=== PATIENT | female | born 1995 | race Caucasian/White ===

== ENCOUNTER 2016-06-01 16:21 | Emergency (ER) | payer OTHER ==
--- NOTE | 2016-06-01 16:37 | UC ---
Throat Pain/Nasal Fili HPI - HPI Summary HPI Summary: complaint of sore throat, nasal congestion, cough, headache that started 2.5 days ago feels slightly nauseated diarrhea for the last 2.5 days has felt feverish and chills taking cough drops without relief - no other medications close contact with children with similiar illness - History of Current Complaint Stated Complaint: SORE THROAT/STOMACH Time Seen by Provider: 06/01/16 16:25 Hx Obtained From: Patient Hx Last Menstrual Period: 10/24/15 - Allergies/Home Medications Allergies/Adverse Reactions: Allergies Allergy/AdvReac Type Severity Reaction Status Date / Time Clavulanic Acid AdvReac Intermediate upset Verified 06/01/16 16:29 [From Augmentin] stomach Codeine AdvReac Intermediate upset Verified 06/01/16 16:29 stomach PMH/Surg Hx/FS Hx/Imm Hx Previously Healthy: Yes Endocrine History Of: Denies: Diabetes, Thyroid Disease, Hyperthyroidism, Hypothyroidism, Dyslipidemia Cardiovascular History Of: Denies: Cardiac Disorders, Hypertension, Pacemaker/ICD, Myocardial Infarction , Congestive Heart Failure, Atrial Fibrillation, Deep Vein Thrombosis, Bleeding Disorders Respiratory History Of: Denies: COPD, Asthma, Bronchitis, Pneumonia, Pulmonary Embolism GI/ History Of: Denies: Gastroesophageal Reflux, Ulcer, Gastrointestinal Bleed, Gall Bladder Disease, Kidney Stones, Diverticulitis, Renal Disease, Urosepsis Neurological History Of: Denies: TIA, CVA, Dementia, Seizures, Migraine Psychological History Of: Reports: Anxiety Denies: Depression, Bipolar Disorder, Schizophrenia, Post Traumatic Stress Disorder Cancer History Of: Denies: Lung Cancer, Colorectal Cancer, Breast Cancer, Prostate Cancer, Cervical Cancer Other History Of: Negative For: HIV, Hepatitis B, Hepatitis C, Anticoagulant Therapy - Surgical History Surgical History: Yes Surgery Procedure, Year, and Place: T&A. L foot surgery. tubes in ears - Family History Known Family History: Positive: Cardiac Disease, Hypertension, Diabetes, Other - Mother has IBS Negative: Renal Disease - Social History Occupation: Employed Full-time Lives: With Family Alcohol Use: Occasionally Substance Use Type: None Smoking Status (MU): Never Smoked Tobacco - Immunization History Most Recent Influenza Vaccination: Not the 2014/2015 Season Vaccination Up to Date: Yes Review of Systems Constitutional: Fever, Chills Skin: Negative Eyes: Negative ENT: Sore Throat, Nasal Discharge Respiratory: Cough Cardiovascular: Negative Gastrointestinal: Vomiting, Diarrhea Genitourinary: Negative Motor: Negative Neurovascular: Negative Musculoskeletal: Negative Neurological: Negative Psychological: Negative All Other Systems Reviewed And Are Negative: Yes Physical Exam Triage Information Reviewed: Yes Appearance: No Pain Distress, Well-Nourished Vital Signs Reviewed: Yes Eyes: Positive: Conjunctiva Clear ENT: Positive: Pharyngeal erythema, Nasal congestion, Nasal drainage, TMs normal Neck: Positive: No Lymphadenopathy Respiratory: Positive: Lungs clear, Normal breath sounds, No respiratory distress Cardiovascular: Positive: RRR, No Murmur, Pulses Normal Abdomen Description: Positive: Nontender, No Organomegaly, Soft. Negative: CVA Tenderness (R), CVA Tenderness (L), Distended, Guarding Bowel Sounds: Positive: Hyperactive Musculoskeletal: Positive: No Edema Neurological: Positive: Alert Psychological Exam: Normal Skin Exam: Normal Throat Pain/Nasal Course/Dx - Differential Dx/Diagnosis Differential Diagnosis/HQI/PQRI: Influenza, Other - gastroenteritis Provider Diagnoses: gastroenteritis- influenza like ilness Discharge - Discharge Plan Condition: Stable Disposition: HOME Patient Education Materials: Gastroenteritis (ED) Additional Instructions: GASTROENTERITIS What is Gastroenteritis? Gastroenteritis is an inflammation of the stomach and bowel that is often called the stomach "flu.'' It should only last 1 or 2 days. You usually get gastroenteritis because you've been in contact with someone who's already infected or because you've eaten contaminated food, or drank contaminated water. Many different viruses can cause intestinal problems but the signs and symptoms are usually the same: watery diarrhea, abdominal cramps, and nausea or vomiting. Symptoms Might Include: Abdominal cramps Diarrhea Nausea Vomiting Blood or mucus in stools Muscle aches Headaches Fever Extreme exhaustion Treatment Recommendations: Decrease activity until you feel better or the diarrhea and vomiting are gone. Take clear liquids, such as tamar cedrick, cola, water, tea, broth, and gelatin, for the first 24 hours or until the diarrhea and vomiting stops. During the next 24 hours you may eat bland foods like cooked cereals, rice, soup, bread, crackers, baked potatoes, eggs, or applesauce. Do not eat fruits, vegetables, fried or spicy foods, bran, candy, dairy products (such as milk or ice cream), apple juice, or alcoholic beverages. You may go back to your normal diet after 2 to 3 days. Drink 8 to 12 glasses of liquid a day. Most of the problems with gastroenteritis are caused by loss of water through vomiting and diarrhea. You may take ibuprofen (Motrin, Advil) or acetaminophen (Tylenol) for fever and muscle aches. Call Your Doctor or Return Here IF: Your symptoms last for more than 3 days. You have severe pain in the abdomen (area around the stomach) or rectum. You have a high temperature. You find blood, mucus, or worms in your stool. You have signs of dehydration (water loss), including dry mouth, excessive thirst, crinkled skin, little or no urination, dizziness, or light-headedness. You have any other new symptoms that worry you.
[2016-06-01 16:55] VITALS: BP 112/83
== END 2016-06-01 17:19 | disposition home or self-care (01) ==
LOC: UCCORT 16:21
DX: K52.9 Noninfective gastroenteritis and colitis, unspecified (principal); J11.1 Influenza due to unidentified influenza virus with other respiratory manifestations; Z88.1 Allergy status to other antibiotic agents; Z88.5 Allergy status to narcotic agent
CPT/HCPCS: 87502; 99212; G0463

== ENCOUNTER 2016-09-20 18:35 | Emergency (ER) | payer OTHER ==
--- NOTE | 2016-09-20 18:38 | UC ---
Throat Pain/Nasal Fili HPI - HPI Summary HPI Summary: 20 year old female presents with complains of sinus pressure/pain. - History of Current Complaint Stated Complaint: SINUS,SORE THROAT Time Seen by Provider: 09/20/16 18:37 Hx Last Menstrual Period: 10/24/15 - Allergies/Home Medications Allergies/Adverse Reactions: Allergies Allergy/AdvReac Type Severity Reaction Status Date / Time Clavulanic Acid AdvReac Intermediate upset Verified 09/20/16 18:39 [From Augmentin] stomach Codeine AdvReac Intermediate upset Verified 09/20/16 18:39 stomach Home Medications: Home Medications [id number] W/ APAP [Delsym Cough + Cold D... 3-02-824-325 mg/10Ml] 1 liq PO BID PRN 09/20/16 [History Confirmed 09/20/16] [id number] ER TAB [Mucinex*] 600 mg PO BID PRN 09/20/16 [History Confirmed 12/28] PMH/Surg Hx/FS Hx/Imm Hx Other History Of: Negative For: HIV, Hepatitis B, Hepatitis C, Anticoagulant Therapy - Surgical History Surgical History: Yes Surgery Procedure, Year, and Place: T&A. L foot surgery. tubes in ears - Family History Known Family History: Positive: Cardiac Disease, Hypertension, Diabetes, Other - Mother has IBS Negative: Renal Disease - Social History Alcohol Use: Occasionally Substance Use Type: None Smoking Status (MU): Never Smoked Tobacco - Immunization History Most Recent Influenza Vaccination: Not the 2014/2015 Season Vaccination Up to Date: Yes Review of Systems Constitutional: Negative Skin: Negative Eyes: Negative ENT: Nasal Discharge, Sinus Congestion, Sinus Pain/Tenderness Respiratory: Negative Cardiovascular: Negative Gastrointestinal: Negative Genitourinary: Negative Motor: Negative Neurovascular: Negative Musculoskeletal: Negative Neurological: Negative Psychological: Negative All Other Systems Reviewed And Are Negative: Yes Physical Exam Triage Information Reviewed: Yes Eye Exam: Normal ENT: Positive: Pharyngeal erythema, Nasal congestion, Nasal drainage Dental Exam: Normal Neck exam: Normal Neck: Positive: 1 Respiratory Exam: Normal Cardiovascular Exam: Normal Abdominal Exam: Normal Musculoskeletal Exam: Normal Neurological Exam: Normal Psychological Exam: Normal Skin Exam: Normal Throat Pain/Nasal Course/Dx - Differential Dx/Diagnosis Provider Diagnoses: sinusitis Discharge - Discharge Plan Condition: Stable Disposition: HOME Prescriptions: Amoxicillin/Clavulanate TAB* [Augmentin TAB 875*] 875 mg PO BID #20 tab LoraTADine TAB(NF) [Claritin 10 MG TAB(NF)] 10 mg PO DAILY #30 tab Methylprednisolone [Medrol Dosepak 4 MG*] 4 mg PO .SEE CRISTY INSTRUCTION #21 tab Patient Education Materials: Pharyngitis (ED), Sinusitis (ED) Referrals: Altagracia Mccormick MD [Primary Care Provider] - If Needed
[2016-09-20 18:52] VITALS: BP 134/77
== END 2016-09-20 18:58 | disposition home or self-care (01) ==
LOC: UCCORT 18:35
DX: J32.9 Chronic sinusitis, unspecified (principal); Z88.5 Allergy status to narcotic agent
CPT/HCPCS: 99212; G0463

== ENCOUNTER 2016-09-22 09:00 | Emergency (ER) | payer OTHER ==
--- NOTE | 2016-09-22 09:10 | UC ---
Throat Pain/Nasal Fili HPI - HPI Summary HPI Summary: 20 YEAR OLD FEMALE PRESENTS WITH COMPLAINS OF SINUS CONGESTION. SHE WAS PLACED ON AUGMENTIN A FEW DAYS AGO AND SHE DEVELOPED NAUSEA/ABDOMINAL PAIN. - History of Current Complaint Stated Complaint: SINUS COMPLAINT Time Seen by Provider: 09/22/16 09:05 Hx Last Menstrual Period: 10/24/15 - Allergies/Home Medications Allergies/Adverse Reactions: Allergies Allergy/AdvReac Type Severity Reaction Status Date / Time Clavulanic Acid AdvReac Intermediate upset Verified 09/22/16 09:17 [From Augmentin] stomach Codeine AdvReac Intermediate upset Verified 09/22/16 09:17 stomach PMH/Surg Hx/FS Hx/Imm Hx Other History Of: Negative For: HIV, Hepatitis B, Hepatitis C, Anticoagulant Therapy - Surgical History Surgical History: Yes Surgery Procedure, Year, and Place: T&A. L foot surgery. tubes in ears - Family History Known Family History: Positive: Cardiac Disease, Hypertension, Diabetes, Other - Mother has IBS Negative: Renal Disease - Social History Alcohol Use: Occasionally Substance Use Type: None Smoking Status (MU): Never Smoked Tobacco - Immunization History Most Recent Influenza Vaccination: Not the 2014/2015 Season Vaccination Up to Date: Yes Review of Systems Constitutional: Negative Skin: Negative Eyes: Negative ENT: Nasal Discharge, Sinus Congestion, Sinus Pain/Tenderness Respiratory: Negative Cardiovascular: Negative Gastrointestinal: Negative Genitourinary: Negative Motor: Negative Neurovascular: Negative Musculoskeletal: Negative Neurological: Negative Psychological: Negative All Other Systems Reviewed And Are Negative: Yes Physical Exam Triage Information Reviewed: Yes Eye Exam: Normal ENT: Positive: Pharyngeal erythema, Nasal congestion Dental Exam: Normal Neck exam: Normal Neck: Positive: 1 Respiratory Exam: Normal Cardiovascular Exam: Normal Abdominal Exam: Normal Musculoskeletal Exam: Normal Neurological Exam: Normal Psychological Exam: Normal Skin Exam: Normal Throat Pain/Nasal Course/Dx - Differential Dx/Diagnosis Provider Diagnoses: SINUSITIS Discharge - Discharge Plan Condition: Stable Disposition: HOME Prescriptions: Azithromyxin CRISTY (NF) [Z-Cristy (Zithromax) 250 mg tabs #6] 2 tab PO .TODAY, THEN 1 DAILY #6 tab Patient Education Materials: Sinusitis (ED) Referrals: Altagracia Mccormick MD [Primary Care Provider] - If Needed
[2016-09-22 09:25] VITALS: BP 122/68
== END 2016-09-22 09:34 | disposition home or self-care (01) ==
LOC: UCEAST 09:00
DX: J32.9 Chronic sinusitis, unspecified (principal); Z88.1 Allergy status to other antibiotic agents; Z88.5 Allergy status to narcotic agent
CPT/HCPCS: 99212; G0463

== ENCOUNTER 2017-01-01 11:58 | Emergency (ER) | payer OTHER ==
[2017-01-01 12:52] VITALS: BP 124/74
--- NOTE | 2017-01-01 13:07 | UC ---
Skin Complaint HPI - HPI Summary HPI Summary: Pt felt tick on her right flank last night. She scratched and the tick was expelled. - History of Current Complaint Chief Complaint: UCSkin Time Seen by Provider: 01/01/17 12:53 Stated Complaint: TICK Hx Obtained From: Patient Hx Last Menstrual Period: 12/27/16 ?: No Onset/Duration: Sudden Onset - Last night. Unsure how long the tick had been on her Pain Intensity: 1 Pain Scale Used: 0-10 Numeric Location: Other - Right flank Character: Pruritus, Pain, Redness Aggravating Factor(s): Nothing Alleviating Factor(s): Nothing Associated Signs & Symptoms: Positive: Negative - Allergy/Home Medications Allergies/Adverse Reactions: Allergies Allergy/AdvReac Type Severity Reaction Status Date / Time Clavulanic Acid AdvReac Intermediate upset Verified 09/22/16 09:17 [From Augmentin] stomach Codeine AdvReac Intermediate upset Verified 09/22/16 09:17 stomach Home Medications: Home Medications Paroxetine HCl [Paxil] 10 mg PO 01/01/17 [History] Review of Systems Constitutional: Negative Skin: Other - 2-3mm scab on right mid back ENT: Negative Respiratory: Negative Cardiovascular: Negative Neurological: Negative Psychological: Anxious All Other Systems Reviewed And Are Negative: Yes PMH/Surg Hx/FS Hx/Imm Hx Previously Healthy: Yes Other History Of: Negative For: HIV, Hepatitis B, Hepatitis C, Anticoagulant Therapy - Surgical History Surgical History: Yes Surgery Procedure, Year, and Place: T&A. L foot surgery. tubes in ears - Family History Known Family History: Positive: Cardiac Disease, Hypertension, Diabetes, Other - Mother has IBS Negative: Renal Disease - Social History Alcohol Use: Occasionally Substance Use Type: None Smoking Status (MU): Never Smoked Tobacco - Immunization History Most Recent Influenza Vaccination: Not the Season Vaccination Up to Date: Yes Physical Exam Triage Information Reviewed: Yes Appearance: Well-Appearing, Other: - Anxious Vital Signs: Initial Vital Signs Temp 98.5 F 01/01/17 12:48 Pulse 77 01/01/17 12:48 Resp 18 01/01/17 12:48 BP 124/74 01/01/17 12:48 Pulse Ox 100 01/01/17 12:48 Vital Signs Reviewed: Yes Respiratory Exam: Normal Respiratory: Positive: Chest non-tender, Lungs clear, Normal breath sounds Cardiovascular Exam: Normal Cardiovascular: Positive: RRR, No Murmur Neurological Exam: Other - CN II-XII grossly intact Psychological Exam: Normal Skin: Positive: Other - 2-3mm scab with 1mm area of surrounding erythema on right mid back. Consistent with recent tick bite. Does not appear to have remaining parts of the tick still present. No bull's eye rash. Course/Dx - Course Course Of Treatment: Area on right mid back was examined and observed to be scabbed over. Area is consistent with a tick bite. Pt appears to have expelled all parts of the tick from the skin. She is asymptomatic at this time, but has no idea how long the tick was on her body. Will rx for 21 days of doxycycline. - Differential Diagnoses - Skin Complaint Differential Diagnoses: Other - Tick bite - Diagnoses Provider Diagnoses: Tick bite right mid back Discharge - Discharge Plan Condition: Stable Disposition: HOME Prescriptions: DOXYcycline CAP(*) [DOXYcycline 100MG CAP(*)] 100 mg PO BID #42 cap Patient Education Materials: Tick Bite (ED) Referrals: Altagracia Mccormick MD [Primary Care Provider] - If Needed Additional Instructions: Pt made aware of potential symptoms associated with early lyme disease. Cautioned to avoid prolonged sun exposure with doxycycline. Advised to call or go to ED if she develops fever, chills, or increasing area of a redness/swelling /pain around the area of the tick.
== END 2017-01-01 13:25 | disposition home or self-care (01) ==
LOC: UCEAST 11:58
DX: S21.259A Open bite of unspecified back wall of thorax without penetration into thoracic cavity, initial encounter (principal); W57.XXXA Bitten or stung by nonvenomous insect and other nonvenomous arthropods, initial encounter; Y92.9 Unspecified place or not applicable
CPT/HCPCS: 99212; G0463

== ENCOUNTER 2017-02-23 13:48 | Emergency (ER) | payer OTHER ==
[2017-02-23 14:22] VITALS: BP 130/82
--- NOTE | 2017-02-23 15:43 | UC ---
UC General HPI - HPI Summary HPI Summary: She has had lower pelvic vinicio cramping for the past week. For the past 5 days she has had diarrhea about 5x/day. No bleeding or fever. She also complains of urinary symptoms. She took two tests this past weekend which were neg and two today which were faintly positive. LMP was 10th of last mo. She has no vaginal complaints and has been monogamous for six years without any prior STD. She denies dysparnueria. She has an appointment with pcp tomorrow for f/u. Since yesterday she has had Sore throat, ear pain, congestion and mild cough. - History of Current Complaint Chief Complaint: UCGU Stated Complaint: LOWER ABDOMINAL PAIN/HEAD COLD Time Seen by Provider: 02/23/17 15:23 Hx Obtained From: Patient Hx Last Menstrual Period: around 01/21- Onset/Duration: Gradual Onset, Lasting Days Timing: Constant Onset Severity: Moderate Current Severity: Moderate Associated Signs & Symptoms: Positive: Abdominal Pain, Cough, Diarrhea. Negative: Fever, Hematemesis, Hemoptysis, Melena, Vomiting, Wheezing - Allergy/Home Medications Allergies/Adverse Reactions: Allergies Allergy/AdvReac Type Severity Reaction Status Date / Time Clavulanic Acid AdvReac Intermediate upset Verified 02/23/17 14:22 [From Augmentin] stomach Codeine AdvReac Intermediate upset Verified 02/23/17 14:22 stomach PMH/Surg Hx/FS Hx/Imm Hx Previously Healthy: No - anxiety /depression. Other History Of: Negative For: HIV, Hepatitis B, Hepatitis C, Anticoagulant Therapy - Surgical History Surgical History: Yes Surgery Procedure, Year, and Place: T&A. L foot surgery. tubes in ears - Family History Known Family History: Positive: Cardiac Disease, Hypertension, Diabetes, Other - Mother has IBS Negative: Renal Disease - Social History Alcohol Use: Weekly Alcohol Amount: 3-4 weekends Substance Use Type: None Smoking Status (MU): Never Smoked Tobacco - Immunization History Most Recent Influenza Vaccination: Not the 2014/2015 Season Vaccination Up to Date: Yes Review of Systems ENT: Sore Throat, Sinus Congestion Respiratory: Cough Gastrointestinal: Diarrhea Genitourinary: Dysuria, Frequency Psychological: Anxious, Depressed All Other Systems Reviewed And Are Negative: Yes Physical Exam Triage Information Reviewed: Yes Appearance: Well-Appearing, No Pain Distress, Well-Nourished Vital Signs: Initial Vital Signs Temp 99.4 F 02/23/17 14:09 Pulse 90 02/23/17 14:09 Resp 18 02/23/17 14:09 BP 130/82 02/23/17 14:09 Pulse Ox 100 02/23/17 14:09 Vital Signs Reviewed: Yes Eyes: Positive: Conjunctiva Clear ENT: Positive: Nasal congestion, TMs normal, Uvula midline. Negative: Pharyngeal erythema, TM bulging, TM dull, TM red, Tonsillar swelling, Tonsillar exudate, Trismus, Muffled voice, Hoarse voice, Dental tenderness, Sinus tenderness Neck: Positive: Supple, Nontender, No Lymphadenopathy Respiratory: Positive: Lungs clear, Normal breath sounds, No respiratory distress, No accessory muscle use. Negative: Respiratory distress, Decreased breath sounds, Accessory muscle use, Crackles, Rhonchi, Stridor Cardiovascular: Positive: RRR, No Murmur, Pulses Normal, Brisk Capillary Refill Abdomen Description: Positive: Soft, Other: - diffuse lower abd tenderness without rebound or guarding.. Negative: Distended, Guarding, Peritoneal Signs, Pulsatile Mass Musculoskeletal: Positive: Strength Intact, ROM Intact. Negative: No Edema Neurological: Positive: Alert, Muscle Tone Normal. Negative: Fatigued Psychological: Positive: Age Appropriate Behavior Skin: Negative: rashes Course/Dx - Course Course Of Treatment: We offerred many options such as pelvic ultrasound, labs such as cbc and hcg, stool sample, pelvic exam. She states that she would prefer to have all this done at pcp tomorrow if needed. None of these things are an emergency as she has had symptoms for about week. She will try to give us a stool sample. Our preg was neg. I have considered ectopic preg, serious abd infection, pid, STD, appendicitis. - Differential Dx - Multi-Symptom Provider Diagnoses: diarrhea. pelvic pain. uri Discharge - Discharge Plan Condition: Good Disposition: HOME Patient Education Materials: Acute Diarrhea (ED), Pelvic Pain in Women (ED) Forms: *Work Release Referrals: Jimena Bassett PA [Primary Care Provider] - Additional Instructions: Follow up with your primary care doctor tomorrow to discuss possible , pelvic pain, urinary symptoms, diarrhea, head cold.
== END 2017-02-23 16:08 | disposition home or self-care (01) ==
LOC: UCCORT 13:48
DX: R19.7 Diarrhea, unspecified (principal); R10.2 Pelvic and perineal pain; J06.9 Acute upper respiratory infection, unspecified
CPT/HCPCS: 81003; 84702; 99211; G0463

== ENCOUNTER 2017-03-27 13:50 | Emergency (ER) | payer OTHER ==
[2017-03-27 14:16] VITALS: BP 85/71
--- NOTE | 2017-03-27 15:23 | UC ---
Respiratory Complaint HPI - HPI Summary HPI Summary: C/O URI sx x 1 week. Non-productive cough. Frontal sinus pain. - History of Current Complaint Chief Complaint: UCRespiratory Stated Complaint: COUGH,CONGESTION Time Seen by Provider: 03/27/17 15:17 Hx Obtained From: Patient Hx Last Menstrual Period: 03/24/17 ?: No Onset/Duration: Sudden Onset, Lasting Weeks - 1, Worse Since - last several days Timing: Constant Severity Initially: Mild Severity Currently: Moderate Character: Cough: Nonproductive Alleviating Factors: Nothing Associated Signs And Symptoms: Positive: Fever, URI, Nasal Congestion, Hoarseness, Sinus Discomfort Related History: Seasonal Allergies - Risk Factors Pulmonary Embolism Risk Factors: Negative - Allergies/Home Medications Allergies/Adverse Reactions: Allergies Allergy/AdvReac Type Severity Reaction Status Date / Time Clavulanic Acid AdvReac Intermediate upset Verified 03/27/17 14:11 [From Augmentin] stomach Codeine AdvReac Intermediate upset Verified 03/27/17 14:11 stomach PMH/Surg Hx/FS Hx/Imm Hx Previously Healthy: Yes Other History Of: Negative For: HIV, Hepatitis B, Hepatitis C, Anticoagulant Therapy - Surgical History Surgical History: Yes Surgery Procedure, Year, and Place: T&A. L foot surgery. tubes in ears - Family History Known Family History: Positive: Cardiac Disease, Hypertension, Diabetes, Other - Mother has IBS Negative: Renal Disease - Social History Occupation: Employed Full-time Lives: With Family Alcohol Use: Occasionally Alcohol Amount: 3-4 weekends Substance Use Type: None Smoking Status (MU): Never Smoked Tobacco - Immunization History Most Recent Influenza Vaccination: Not this Season Vaccination Up to Date: Yes Review of Systems Constitutional: Fever ENT: Sore Throat, Ear Ache, Sinus Pain/Tenderness Respiratory: Cough Musculoskeletal: Myalgia - neck and shoulders Is Patient Immunocompromised?: No All Other Systems Reviewed And Are Negative: Yes Physical Exam Triage Information Reviewed: Yes Appearance: No Pain Distress, Well-Nourished, Ill-Appearing Vital Signs: Initial Vital Signs Temp 97.6 F 03/27/17 14:12 Pulse 74 03/27/17 14:12 Resp 16 03/27/17 14:12 BP 85/71 03/27/17 14:12 Pulse Ox 100 03/27/17 14:12 Vital Signs Reviewed: Yes Eyes: Positive: Conjunctiva Clear ENT: Positive: Pharynx normal, Nasal congestion, TMs normal Neck exam: Normal Neck: Positive: Tenderness @ - bilateral anterior without LA. Respiratory: Positive: Wheezing - Mild expiratory wheeze with forced expiration. Cardiovascular Exam: Normal Musculoskeletal Exam: Normal Neurological Exam: Normal Psychological Exam: Normal Skin Exam: Normal UC Diagnostic Evaluation - Laboratory O2 Sat by Pulse Oximetry: 100 Respiratory Course/Dx - Differential Dx/Diagnosis Differential Diagnosis/HQI/PQRI: Asthma, Lower Resp Infection, Sinusitis Provider Diagnoses: Acute URI. Acute sinusitis. Acute bronchospasm Discharge - Discharge Plan Condition: Stable Disposition: HOME Prescriptions: Cefuroxime 500 MG(NF) 500 mg PO BID #20 tab predniSONE TAB* [Deltasone TAB*] 20 mg PO DAILY #18 tab Patient Education Materials: Upper Respiratory Infection (ED), Sinusitis (ED), Cefuroxime (By mouth), Bronchospasm (ED), Prednisone (By mouth) Referrals: Jimena Bassett PA [Primary Care Provider] -
== END 2017-03-27 15:54 | disposition home or self-care (01) ==
LOC: UCCORT 13:50
DX: J06.9 Acute upper respiratory infection, unspecified (principal); J01.90 Acute sinusitis, unspecified; J98.01 Acute bronchospasm; Z88.1 Allergy status to other antibiotic agents; Z88.5 Allergy status to narcotic agent
CPT/HCPCS: 99212; G0463

== ENCOUNTER 2017-03-29 16:11 | Emergency (ER) | payer SELFPAY ==
[2017-03-29 16:28] VITALS: BP 123/77
--- NOTE | 2017-03-29 17:42 | UC ---
Respiratory Complaint HPI - HPI Summary HPI Summary: 21 y/o female presents to the urgent care for a recheck on her sinusitis. Pt reports she was seen 2 days aog here at the clinic and Rx Cefuroxime and Prednisone for sinusitis and bronchospasm. Pt states she has not taking the ABx becomes it upsets her stomach. Last year she took it and got diarrhea. She request Azithromycin. Her symptoms have worsen with nasal congestion, HENDERSON, sinus pain and green +PND and cough with bronchospasm. Pt denies fever, SOB, chest pain, abdominal pain, N/V/D - History of Current Complaint Chief Complaint: UCRespiratory Stated Complaint: RECHECK UPPER RESPIRATORY Time Seen by Provider: 03/29/17 17:39 Hx Obtained From: Patient Hx Last Menstrual Period: 03/24/16 Onset/Duration: Gradual Onset, Lasting Weeks - 2 weeks, Still Present, Worse Since - 3 days Timing: Constant Severity Initially: Mild Severity Currently: Moderate Pain Intensity: 6 Pain Scale Used: 0-10 Numeric Character: Cough: Productive, Sputum Description: - green Aggravating Factors: Recumbent Position Alleviating Factors: OTC Meds Associated Signs And Symptoms: Positive: URI, Nasal Congestion, Sinus Discomfort - Risk Factors Pulmonary Embolism Risk Factors: Negative Cardiac Risk Factors: Negative Pseudomonas Risk Factors: Negative Tuberculosis Risk Factors: Negative - Allergies/Home Medications Allergies/Adverse Reactions: Allergies Allergy/AdvReac Type Severity Reaction Status Date / Time Clavulanic Acid AdvReac Intermediate Nausea, Verified 03/29/17 16:24 [From Augmentin] Vomiting, Diarrhea Codeine AdvReac Intermediate Nausea, Verified 03/29/17 16:24 Vomiting, Diarrhea Cefuroxime AdvReac Nausea, Verified 03/29/17 16:24 Vomiting, Diarrhea PMH/Surg Hx/FS Hx/Imm Hx Previously Healthy: Yes - Pt denies PMHX Other History Of: Negative For: HIV, Hepatitis B, Hepatitis C, Anticoagulant Therapy - Surgical History Surgical History: Yes Surgery Procedure, Year, and Place: T&A. L foot surgery. tubes in ears - Family History Known Family History: Positive: Cardiac Disease, Hypertension, Diabetes Negative: Renal Disease Family History: Mother has IBS - Social History Occupation: Employed Full-time Lives: With Family Alcohol Use: Occasionally Alcohol Amount: 3-4 weekends Substance Use Type: None Smoking Status (MU): Never Smoked Tobacco - Immunization History Most Recent Influenza Vaccination: Not this Season Vaccination Up to Date: Yes Review of Systems Constitutional: Negative Skin: Negative Eyes: Negative ENT: Nasal Discharge, Sinus Congestion, Sinus Pain/Tenderness Respiratory: Cough Cardiovascular: Negative Gastrointestinal: Negative Genitourinary: Negative Motor: Negative Neurovascular: Negative Musculoskeletal: Negative Neurological: Headache Psychological: Negative Is Patient Immunocompromised?: No All Other Systems Reviewed And Are Negative: Yes Physical Exam Triage Information Reviewed: Yes Vital Signs: Initial Vital Signs Temp 98.8 F 03/29/17 16:21 Pulse 86 03/29/17 16:21 Resp 16 03/29/17 16:21 BP 123/77 03/29/17 16:21 Pulse Ox 100 03/29/17 16:21 - Additional Comments Vitals: reviewed General: Well developed, well-nourished female patient with NAD. Head and face: Normocephalic and atraumatic, Positive tenderness over the frontal and maxillary sinuses.. Eyes: PERRLA, EOMI x 2. Normal conjunctiva. No eye discharge. ENT: Ears and TM with normal limits. Nose: with yellowish discharge and erythematous mucosa. Pharynx with erythema, no exudate. Neck: Supple, no JVD, no carotid bruits and no lymphadenopathy. Lungs: clear, no rales, no rhonchi, no wheezes. CVS: RRR, S1 and S2 present no murmurs or gallops appreciated. Abdomen: soft nontender with positive bowel sounds. Extremities: no edema noted. Neuro: WNL. Skin: warm and dry UC Diagnostic Evaluation - Laboratory O2 Sat by Pulse Oximetry: 100 Respiratory Course/Dx - Course Course Of Treatment: 21 y/o female presents to the urgent care for a recheck on her sinusitis. Pt reports she was seen 2 days aog here at the clinic and Rx Cefuroxime and Prednisone for sinusitis and bronchospasm. Pt states she has not taking the ABx becomes it upsets her stomach. Last year she took it and got diarrhea. She request Azithromycin. Her symptoms have worsen with nasal congestion, HENDERSON, sinus pain and green +PND and cough with bronchospasm. Pt denies fever, SOB, chest pain, abdominal pain, N/V/D. Hx obtained. Pt with sinusitis on examination.Symptoms getting worse. Pt Rx Z-cristy PO and flonase nasal spray. Advised to continue taking Prednisone PO . Discharge instructions explained to Pt. Advised to Return to the clinic or PCP if symptoms do not improve.Pt understood and agreed with plan of care. - Differential Dx/Diagnosis Differential Diagnosis/HQI/PQRI: Bronchitis, Influenza, Laryngitis, Lower Resp Infection, Sinusitis, Other - pharyngitis Provider Diagnoses: 1- Acute bacterial sinusitis Discharge - Discharge Plan Condition: Stable Disposition: HOME Prescriptions: Azithromyxin CRISTY (NF) [Z-Cristy (Zithromax) 250 mg tabs #6] 2 tab PO .TODAY, THEN 1 DAILY #6 tab Fluticasone NASAL SPRAY 50MCG* [Flonase NASAL SPRAY 50MCG*] 2 spray BOTH NARES DAILY #1 btl Patient Education Materials: Sinusitis (ED) Forms: *Work Release Referrals: Jimena Bassett PA [Primary Care Provider] - 3 Days Additional Instructions: 1- Please increase fluid intake and rest. take full course of antibiotic to avoid resistance 2-Use Flonase as directed to help drain fluid. Also buy saline drops to clear sinuses 3-Continue taking Prednisone PO to alleviates sinus congestion 4-Return to the clinic or PCP in 3days if symptoms do not improve for further management and treatment
== END 2017-03-29 18:04 | disposition home or self-care (01) ==
LOC: UCCORT 16:11
DX: J01.90 Acute sinusitis, unspecified (principal); Z88.1 Allergy status to other antibiotic agents; Z88.5 Allergy status to narcotic agent
CPT/HCPCS: 99211; G0463

== ENCOUNTER 2017-05-19 09:10 | Emergency (ER) | payer OTHER ==
[2017-05-19 10:05] VITALS: BP 127/65
--- NOTE | 2017-05-19 10:32 | UC ---
Complaint Female HPI - HPI Summary HPI Summary: RLQ pain feels similar to past hs of ovarian cysts but usually gets them on her left side-able to eat a small amount this morning but does c/o nausea - History Of Current Complaint Chief Complaint: UCGeneralIllness Stated Complaint: PERSONAL Time Seen by Provider: 05/19/17 10:31 Hx Obtained From: Patient Hx Last Menstrual Period: 05/06/17 ?: No Onset/Duration: Sudden Onset, Lasting Days - 1, Still Present Timing: Constant Severity Initially: Moderate Severity Currently: Moderate Pain Intensity: 7 - refused pain med Pain Scale Used: 0-10 Numeric Character: Sharp Aggravating Factor(s): Movement Alleviating Factor(s): Nothing Associated Signs And Symptoms: Positive: Nausea - Allergies/Home Medications Allergies/Adverse Reactions: Allergies Allergy/AdvReac Type Severity Reaction Status Date / Time cefuroxime Allergy Nausea And Verified 05/19/17 09:59 Vomiting clavulanic acid Allergy Nausea And Verified 05/19/17 09:59 Vomiting codeine Allergy Nausea And Verified 05/19/17 09:59 Vomiting PMH/Surg Hx/FS Hx/Imm Hx Previously Healthy: No GI/ History: Other Other GI/ History: ovarian cystes Psychological History: Depression Other History Of: Negative For: HIV, Hepatitis B, Hepatitis C, Anticoagulant Therapy - Surgical History Surgical History: Yes Surgery Procedure, Year, and Place: T&A. L foot surgery. tubes in ears - Family History Known Family History: Positive: Cardiac Disease, Hypertension, Diabetes, Other - Mother has IBS Negative: Renal Disease Family History: Mother has IBS - Social History Occupation: Employed Part-time Lives: With Family Alcohol Use: Occasionally Alcohol Amount: 3-4 weekends Substance Use Type: None Smoking Status (MU): Never Smoked Tobacco - Immunization History Most Recent Influenza Vaccination: Not this Season Vaccination Up to Date: Yes Review of Systems Constitutional: Negative Skin: Negative Eyes: Negative ENT: Negative Respiratory: Negative Cardiovascular: Negative Gastrointestinal: Abdominal Pain, Nausea Genitourinary: Dysuria Motor: Negative Neurovascular: Negative Musculoskeletal: Negative Neurological: Negative Psychological: Negative Is Patient Immunocompromised?: No All Other Systems Reviewed And Are Negative: Yes Physical Exam Triage Information Reviewed: Yes Appearance: Well-Appearing, Well-Nourished, Pain Distress - mild-moderate Vital Signs: Initial Vital Signs Temp 97.8 F 05/19/17 10:01 Pulse 81 05/19/17 10:01 Resp 16 05/19/17 10:01 BP 127/65 05/19/17 10:01 Pulse Ox 100 05/19/17 10:01 Vital Signs Reviewed: Yes Eye Exam: Normal Eyes: Positive: Conjunctiva Clear ENT Exam: Normal ENT: Positive: Normal ENT inspection, Hearing grossly normal, Pharynx normal, TMs normal, Uvula midline. Negative: Nasal congestion, Tonsillar swelling, Tonsillar exudate, Trismus, Muffled voice, Hoarse voice, Dental tenderness Dental Exam: Normal Neck exam: Normal Neck: Positive: Supple, Nontender Respiratory Exam: Normal Respiratory: Positive: Chest non-tender, Lungs clear, Normal breath sounds, No respiratory distress, No accessory muscle use Cardiovascular Exam: Normal Cardiovascular: Positive: RRR, No Murmur, Pulses Normal, Brisk Capillary Refill Abdominal Exam: Other Abdomen Description: Positive: No Organomegaly, Soft, Other: - low right quad pain. Negative: CVA Tenderness (R), CVA Tenderness (L), Distended, Guarding, McBurney's Point Tenderness Musculoskeletal Exam: Normal Musculoskeletal: Positive: Strength Intact, ROM Intact, No Edema Neurological Exam: Normal Neurological: Positive: Alert, Muscle Tone Normal Psychological Exam: Normal Skin Exam: Normal Diagnostics - Laboratory Diagnostic Studies Completed/Ordered: US-Complex right ovarian cyst, free fluid, . ua-+2 blood, upreg (-) Complaint Female Dx - Course Course Of Treatment: warm compress to abdomen, tylenol, rest, follow with pcp to ed for worsening sx - Differential Dx/Diagnosis Provider Diagnoses: hematuria, R complex ovarian cyst Discharge - Discharge Plan Condition: Stable Disposition: HOME Patient Education Materials: Acetaminophen (By mouth), Ovarian Cyst (ED), Hematuria (ED), Warm Compress or Soak (ED) Forms: *Work Release Referrals: Jimena Bassett PA [Primary Care Provider] - 1 Week
--- NOTE | 2017-05-19 11:19 | RAD ---
INDICATION: Right lower quadrant pain, torsion, cyst. COMPARISON: Comparison is made with a prior pelvic ultrasound from May 19, 2011. TECHNIQUE: Multiple real-time transvaginal images of the pelvis were obtained. FINDINGS: The uterus is normal in size, shape and echogenicity. The uterus measured 8.1 x 3.4 x 4.2 cm. The endometrial echo measured 1.0 cm in thickness. The right ovary measured 4.1 x 2.2 x 2.5 cm. The left ovary measured 3.0 x 1.9 x 1.3 cm. There is vascular flow within both ovaries. There is a small complex cyst within the right ovary measuring 1.6 x 1.5 x 1.7 cm. There is a small amount of free intraperitoneal fluid in the cul-de-sac. IMPRESSION: SMALL AMOUNT OF FREE INTRAPERITONEAL FLUID AND SMALL COMPLEX RIGHT OVARIAN CYST MOST CONSISTENT WITH AN INVOLUTING FOLLICULAR CYST.
== END 2017-05-19 11:38 | disposition home or self-care (01) ==
LOC: UCCORT 09:10
DX: R31.9 Hematuria, unspecified (principal); N83.201 Unspecified ovarian cyst, right side; Z32.02 Encounter for pregnancy test, result negative; Z88.1 Allergy status to other antibiotic agents; Z88.5 Allergy status to narcotic agent; Z88.8 Allergy status to other drugs, medicaments and biological substances
CPT/HCPCS: 76830; 81003; 84702; 99211; G0463

== ENCOUNTER 2017-07-06 13:41 | Emergency (ER) | payer OTHER ==
[2017-07-06 15:04] LABS: Urine Appearance Clear; Urine Blood 2+ (Negative); Urine Color Straw; Urine Ketones Negative (Negative); Urine Protein Negative (Negative); Urine Specific Gravity 1.003 (1.010-1.030); Urine Urobilinogen Negative (Negative)
[2017-07-06 15:06] LABS: ABS Basophils 0 10^3/ul (0-0.2); ABS Eosinophils 0.1 10^3/ul (0-0.6); ABS Lymphocytes 2.1 10^3/ul (1.0-4.8); ABS Monocytes 0.4 10^3/ul (0-0.8); ABS Neutrophils 4.5 10^3/ul (1.5-7.7); ABS Nucleated RBC 0 10^3/ul; Eosinophil % 1.2 % (0-6); Hematocrit 41 % (35-47); Hemoglobin 13.8 g/dl (12.0-16.0); Lymphocyte % 29.7 % (25-47); Mean Corpuscular HGB Conc 34 g/dl (31-36); Mean Corpuscular Hemoglobin 28 pg (27-31); Mean Corpuscular Volume 84 fL (80-97); Mean Platelet Volume 7.4 um3 (7.4-10.4); Nucleated Red Blood Cells % 0; Platelet Count 306 10^3/ul (150-450); Red Blood Count 4.86 10^6/ul (4.0-5.4); Red Cell Distribution Width 13 % (10.5-15); White Blood Count 7.2 10^3/ul (3.5-10.8)
--- NOTE | 2017-07-06 18:43 | ED ---
Hussein Jon Angela, scribed for Giorgi Castro on 07/06/17 at 1616 . Psychiatric Complaint - HPI Summary HPI Summary: This pt is a 21 y/o female [place] [facility] [place]/o depression and SI thoughts. Pt reports she has been having a hard time lately and feeling depressed, angry and suicidal. She denies SI plan, HI. Pt denies any prior mental health hospitalization. Pt has a hx of depression. She is currently on Paxil. Pt reports occasional alcohol use. Denies drug or tobacco use. - History Of Current Complaint Chief Complaint: EDMentalHealth Time Seen by Provider: 07/06/17 14:08 Hx Obtained From: Patient Hx Last Menstrual Period: 05/06/17 Onset/Duration: Lasting Days, Still Present Timing: Days Severity Currently: Moderate Character: Depressed, Angry Aggravating Factor(s): Recent Stress Alleviating Factor(s): Nothing Associated Signs And Symptoms: Positive: Confused Has Suicidal: Reports: Thoughts. Denies: With A Plan Has Homicidal: Denies: Thoughts, With A Plan - Allergies/Home Medications Allergies/Adverse Reactions: Allergies Allergy/AdvReac Type Severity Reaction Status Date / Time cefuroxime Allergy Nausea And Verified 07/06/17 13:50 Vomiting clavulanic acid Allergy Nausea And Verified 07/06/17 13:50 Vomiting codeine Allergy Nausea And Verified 07/06/17 13:50 Vomiting Home Medications: Home Medications PARoxetine HCL TAB* [Paxil TAB*] 10 mg PO DAILY 07/06/17 [History Confirmed ] PMH/Surg Hx/FS Hx/Imm Hx Endocrine/Hematology History: Denies: Hx Anticoagulant Therapy, Hx Diabetes, Hx Thyroid Disease Cardiovascular History: Denies: Hx Congestive Heart Failure, Hx Deep Vein Thrombosis, Hx Hypertension , Hx Myocardial Infarction, Hx Pacemaker/ICD Respiratory History: Denies: Hx Asthma, Hx Chronic Obstructive Pulmonary Disease (COPD), Hx Lung Cancer, Hx Pneumonia, Hx Pulmonary Embolism GI History: Denies: Hx Gall Bladder Disease, Hx Gastrointestinal Bleed, Hx Ulcer, Hx Urosepsis History: Denies: Hx Kidney Stones, Hx Renal Disease Neurological History: Denies: Hx Dementia, Hx Migraine, Hx Seizures, Hx Transient Ischemic Attacks (TIA) Psychiatric History: Reports: Hx Anxiety, Hx Depression Denies: Hx Schizophrenia, Hx Bipolar Disorder - Surgical History Surgery Procedure, Year, and Place: T&A. L foot surgery. tubes in ears Infectious Disease History: No Infectious Disease History: Denies: Hx Clostridium Difficile, Hx Hepatitis, Hx Human Immunodeficiency Virus (HIV), Hx of Known/Suspected MRSA, Hx Shingles, Hx Tuberculosis, Hx Known/ Suspected VRE, Hx Known/Suspected VRSA, History Other Infectious Disease, Traveled Outside the [place] in Last 30 Days - Family History Known Family History: Positive: Cardiac Disease, Hypertension, Diabetes, Other - Mother has IBS Negative: Renal Disease Family History: Mother has IBS - Social History Alcohol Use: Occasionally Alcohol Amount: 3-4 weekends Substance Use Type: Reports: None Smoking Status (MU): Never Smoked Tobacco Review of Systems Negative: Fever, Chills Eyes: Negative ENT: Negative Cardiovascular: Negative Respiratory: Negative Gastrointestinal: Negative Psychological: Other - angry, SI thoughts Positive: Depressed. Negative: Other - SI plan, HI All Other Systems Reviewed And Are Negative: Yes Physical Exam - Summary Physical Exam Summary: Appearance: Well appearing, no pain distress Skin: warm, dry, reflects adequate perfusion Head/face: normal Eyes: EOMI, DI ENT: normal Neck: supple, nontender Respiratory: CTA, breath sounds present Cardiovascular: RRR, pulses symmetrical Abdomen: nontender, soft Bowel: present Musculoskeletal: normal, strength/ROM intact Neuro: normal, sensory motor intact, A&Ox3 Psych: depressed Triage Information Reviewed: Yes Vital Signs On Initial Exam: Initial Vitals Temp Pulse Resp BP Pulse Ox 98.0 F 77 16 143/84 99 07/06/17 13:46 07/06/17 13:46 07/06/17 13:46 07/06/17 13:46 07/06/17 13:46 Vital Signs Reviewed: Yes Diagnostics - Vital Signs Vital Signs Temp Pulse Resp BP Pulse Ox 07/06/17 13:50 88 15 121/74 99 07/06/17 13:46 98.0 F 77 16 143/84 99 - Laboratory Lab Results: Lab Results 07/06/17 07/06/17 07/06/17 Range/Units 13:45 13:45 14:58 WBC (3.5-10.8) 10^3/ul RBC (4.0-5.4) 10^6/ul Hgb (12.0-16.0) g/dl Hct (35-47) % MCV (80-97) fL MCH (27-31) pg MCHC (31-36) g/dl RDW (10.5-15) % Plt Count (150-450) 10^3/ul MPV (7.4-10.4) um3 Neut % (Auto) (38-83) % Lymph % (Auto) (25-47) % Zavala % (Auto) (0-7) % Eos % (Auto) (0-6) % Baso % (Auto) (0-2) % Absolute Neuts (auto) (1.5-7.7) 10^3/ul Absolute Lymphs (auto) (1.0-4.8) 10^3/ul Absolute Monos (auto) (0-0.8) 10^3/ul Absolute Eos (auto) (0-0.6) 10^3/ul Absolute Basos (auto) (0-0.2) 10^3/ul Absolute Nucleated RBC 10^3/ul Nucleated RBC % Sodium 138 L (139-145) mmol/L Potassium 3.7 (3.5-5.0) mmol/L Chloride 106 (101-111) mmol/L Carbon Dioxide 24 (22-32) mmol/L Anion Gap 8 (2-11) mmol/L BUN 9 (6-24) mg/dL Creatinine 0.79 (0.51-0.95) mg/dL Est GFR ( Amer) 117.0 (>60) Est GFR (Non-Af Amer) 91.0 (>60) BUN/Creatinine Ratio 11.4 (8-20) Glucose 86 (70-100) mg/dL Calcium 9.3 (8.6-10.3) mg/dL Total Bilirubin 0.40 (0.2-1.0) mg/dL AST 15 (13-39) U/L ALT 9 (7-52) U/L Alkaline Phosphatase 62 (34-104) U/L Total Protein 7.3 (6.4-8.9) g/dL Albumin 4.3 (3.2-5.2) g/dL Globulin 3.0 (2-4) g/dL Albumin/Globulin Ratio 1.4 (1-3) TSH 1.47 (0.34-5.60) mcIU/mL Beta HCG, Quant < 0.60 mIU/mL Urine Color Straw Urine Appearance Clear Urine pH 6.0 (5-9) Ur Specific [place] 1.003 L (1.010-1.030) Urine Protein Negative (Negative) Urine Ketones Negative (Negative) Urine Blood 2+ A (Negative) Urine Nitrate Negative (Negative) Urine Bilirubin Negative (Negative) Urine Urobilinogen Negative (Negative) Ur Leukocyte Esterase Negative (Negative) Urine WBC (Auto) Absent (Absent) Urine RBC (Auto) Trace(0-2/hpf) (Absent) Ur Squamous Epith Cells Present A (Absent) Urine Bacteria Absent (Absent) Urine Glucose Negative (Negative) Salicylates < 2.50 (<30) mg/dL Urine Opiates Screen None detected (None Detect) Acetaminophen < 15 mcg/mL Ur Barbiturates Screen None detected (None Detect) Ur Phencyclidine Scrn None detected (None Detect) Ur Amphetamines Screen None detected (None Detect) U Benzodiazepines Scrn None detected (None Detect) Urine Cocaine Screen None detected (None Detect) U Cannabinoids Screen None detected (None Detect) Serum Alcohol < 10 (<10) mg/dL 07/06/17 Range/Units 14:58 WBC 7.2 (3.5-10.8) 10^3/ul RBC 4.86 (4.0-5.4) 10^6/ul Hgb 13.8 (12.0-16.0) g/dl Hct 41 (35-47) % MCV 84 (80-97) fL MCH 28 (27-31) pg MCHC 34 (31-36) g/dl RDW 13 (10.5-15) % Plt Count 306 (150-450) 10^3/ul MPV 7.4 (7.4-10.4) um3 Neut % (Auto) 63.2 (38-83) % Lymph % (Auto) 29.7 (25-47) % Zavala % (Auto) 5.5 (0-7) % Eos % (Auto) 1.2 (0-6) % Baso % (Auto) 0.4 (0-2) % Absolute Neuts (auto) 4.5 (1.5-7.7) 10^3/ul Absolute Lymphs (auto) 2.1 (1.0-4.8) 10^3/ul Absolute Monos (auto) 0.4 (0-0.8) 10^3/ul Absolute Eos (auto) 0.1 (0-0.6) 10^3/ul Absolute Basos (auto) 0 (0-0.2) 10^3/ul Absolute Nucleated RBC 0 10^3/ul Nucleated RBC % 0 Sodium (139-145) mmol/L Potassium (3.5-5.0) mmol/L Chloride (101-111) mmol/L Carbon Dioxide (22-32) mmol/L Anion Gap (2-11) mmol/L BUN (6-24) mg/dL Creatinine (0.51-0.95) mg/dL Est GFR ( Amer) (>60) Est GFR (Non-Af Amer) (>60) BUN/Creatinine Ratio (8-20) Glucose (70-100) mg/dL Calcium (8.6-10.3) mg/dL Total Bilirubin (0.2-1.0) mg/dL AST (13-39) U/L ALT (7-52) U/L Alkaline Phosphatase (34-104) U/L Total Protein (6.4-8.9) g/dL Albumin (3.2-5.2) g/dL Globulin (2-4) g/dL Albumin/Globulin Ratio (1-3) TSH (0.34-5.60) mcIU/mL Beta HCG, Quant mIU/mL Urine Color Urine Appearance Urine pH (5-9) Ur Specific [place] (1.010-1.030) Urine Protein (Negative) Urine Ketones (Negative) Urine Blood (Negative) Urine Nitrate (Negative) Urine Bilirubin (Negative) Urine Urobilinogen (Negative) Ur Leukocyte Esterase (Negative) Urine WBC (Auto) (Absent) Urine RBC (Auto) (Absent) Ur Squamous Epith Cells (Absent) Urine Bacteria (Absent) Urine Glucose (Negative) Salicylates (<30) mg/dL Urine Opiates Screen (None Detect) Acetaminophen mcg/mL Ur Barbiturates Screen (None Detect) Ur Phencyclidine Scrn (None Detect) Ur Amphetamines Screen (None Detect) U Benzodiazepines Scrn (None Detect) Urine Cocaine Screen (None Detect) U Cannabinoids Screen (None Detect) Serum Alcohol (<10) mg/dL Result Diagrams: 07/06/17 14:58 07/06/17 14:58 Lab Statement: Any lab studies that have been ordered have been reviewed, and results considered in the medical decision making process. Course/Dx - Course Assessment/Plan: Pt is a 21 y/o female presenting to [facility] c/o depression and SI thoughts. Blood work was obtained. Pt is medically cleared for MHE at 16:35. She is awaiting MHE. At this point mental health evaluation is still pending. Pt will be signed out to Dr. Gorman, pending disposition, awaiting MHE. - Differential Dx/Clinical Impression Provider Diagnosis: Depression, Suicidal ideation Discharge - Sign-Out/Discharge Documenting (check all that apply): Sign-Out Patient Signing out patient TO: Kirit Gorman - Discharge Plan Condition: Stable Discharge Disposition Comment: signed out to Dr. Gorman, pending dispo, awaiting MHE. Referrals: Jimena Bassett PA [Primary Care Provider] - The documentation as recorded by the Hussein shetty Angela accurately reflects the service I personally performed and the decisions made by , Giorgi Castro.
--- NOTE | 2017-07-07 05:33 | ED ---
Misael Jon Gabriel, scribed for Kirit Gorman MD on 07/07/17 at 0524 . Progress - Progress Note Progress Note: This patient was signed out from Dr. Castro, pending disposition, awaiting MHE. The patient will be held in flex until the morning when she can be seen by the mental health felt machine mechanic. - Consult/PCP Time Called: 13:45 Course/Dx - Diagnoses Provider Diagnoses: Depressive disorder Discharge - Sign-Out/Discharge Documenting (check all that apply): Sign-Out Patient Signing out patient TO: Saurabh Esparza - Discharge Plan Condition: Stable Referrals: Jimena Bassett PA [Primary Care Provider] - - Billing Disposition and Condition Condition: STABLE The documentation as recorded by the Misael shetty Gabriel accurately reflects the service I personally performed and the decisions made by , Kirit Gorman MD.
[2017-07-07] MEDS ORDERED: PARoxetine HCL TAB* 10 MG PO ONE (16:17)
[2017-07-07 18:06] VITALS: BP 128/66
--- NOTE | 2017-07-07 19:00 | ED ---
Bon Jon Jennifer, scribed for Saurabh Esparza MD on 07/07/17 at 1721 . Progress - Progress Note Progress Note: This patient was signed out from Dr. Gorman pending disposition. The patient was seen by a mental health medical scribe. The patient will be transferred to [facility]. This transfer was approved by Dr. Barrientos. Course/Dx - Provider Notifications Discussed Care Of Patient With: Dr. Barrientos Time Discussed With Above Provider: 17:22 Instructed by Provider To: Transfer - Dr. Barrientos, ED physician, approved transfer of patient to [facility]. Discharge - Sign-Out/Discharge Documenting (check all that apply): Discharge/Admit/Transfer - Discharge Plan Condition: Stable Disposition: PSYCHIATRIC FACILITY-OTHER Referrals: Jimena Bassett PA [Primary Care Provider] - - Billing Disposition and Condition Condition: STABLE Disposition: PSY-OTH The documentation as recorded by the Bon shetty Jennifer accurately reflects the service I personally performed and the decisions made by , Saurabh Esparza MD.
== END 2017-07-07 18:50 ==
LOC: ED 13:41
DX: F32.9 Major depressive disorder, single episode, unspecified (principal); R45.851 Suicidal ideations; Z32.02 Encounter for pregnancy test, result negative; F41.9 Anxiety disorder, unspecified; Z88.1 Allergy status to other antibiotic agents; Z88.5 Allergy status to narcotic agent
CPT/HCPCS: 36415; 80053; 80307; 80320; 80329; 81003; 81015; 84443; 84702; 85025; 93005; 99284; G0480

== ENCOUNTER 2017-12-28 16:23 | Emergency (ER) | payer OTHER ==
[2017-12-28 16:34] VITALS: BP 118/79
--- NOTE | 2017-12-28 16:44 | UC ---
Throat Pain/Nasal Fili HPI - HPI Summary HPI Summary: 22 yo female presents with sinus pain/pressure/congestion, b/l earache, and sore throat for the last 5 days. Over the last 2 days has had a decreased appetite and felt nauseous with fatigue and body aches. Has been having hot/ cold chills, but has not taken her temperature. Has not been taking anything OTC. Denies cough, SOB, chest pain, abdominal pain, dysuria. - History of Current Complaint Chief Complaint: UCRespiratory Stated Complaint: RESP COMPLAINT Time Seen by Provider: 12/28/17 16:44 Hx Obtained From: Patient Hx Last Menstrual Period: 3 wks ago Onset/Duration: Sudden Onset Severity: Mild Pain Intensity: 3 Pain Scale Used: 0-10 Numeric - Allergies/Home Medications Allergies/Adverse Reactions: Allergies Allergy/AdvReac Type Severity Reaction Status Date / Time cefuroxime Allergy Nausea And Verified 12/28/17 16:34 Vomiting clavulanic acid Allergy Nausea And Verified 12/28/17 16:34 Vomiting codeine Allergy Nausea And Verified 12/28/17 16:34 Vomiting PMH/Surg Hx/FS Hx/Imm Hx - Additional Past Medical History Additional PMH: None Other History Of: Negative For: HIV, Hepatitis B, Hepatitis C, Anticoagulant Therapy - Surgical History Surgical History: Yes Surgery Procedure, Year, and Place: T&A. L foot surgery. tubes in ears - Family History Known Family History: Positive: Cardiac Disease, Hypertension, Diabetes, Other - Mother has IBS Negative: Renal Disease Family History: Mother has IBS - Social History Occupation: Employed Full-time Lives: With Family Alcohol Use: Occasionally Alcohol Amount: 3-4 weekends Substance Use Type: None Smoking Status (MU): Never Smoked Tobacco - Immunization History Most Recent Influenza Vaccination: Not this Season Vaccination Up to Date: Yes Review of Systems Constitutional: Negative Skin: Negative Eyes: Negative ENT: Sore Throat, Ear Ache, Nasal Discharge, Sinus Congestion, Sinus Pain/ Tenderness Respiratory: Negative Cardiovascular: Negative Gastrointestinal: Negative Musculoskeletal: Negative Neurological: Negative Psychological: Negative All Other Systems Reviewed And Are Negative: Yes Physical Exam - Summary Physical Exam Summary: GENERAL: NAD. WDWN. No pain distress. SKIN: No rashes, sores, lesions, or open wounds. HEENT: Head: AT/NC Eyes: EOM intact. Conjunctiva clear without inflammation or discharge. Ears: Hearing grossly normal. TMs intact, no bulging, erythema, or edema. Mild fluid behind b/l TMs Nose: Nasal mucosa mildly swollen and erythematous with clear discharge. TTP maxillary sinus. Throat: Posterior oropharynx without exudates, erythema, or tonsillar enlargement. Uvula midline. NECK: Supple. Nontender. No lymphadenopathy. CHEST: CTAB. No r/r/w. No accessory muscle use. Breathing comfortably and in no distress. CV: RRR. Without m/r/g. Pulses intact. NEURO: Alert. PSYCH: Age appropriate behavior. Triage Information Reviewed: Yes Vital Signs: Initial Vital Signs Temp 98.8 F 12/28/17 16:32 Pulse 83 12/28/17 16:32 Resp 18 12/28/17 16:32 BP 118/79 12/28/17 16:32 Pulse Ox 99 12/28/17 16:32 Vital Signs Reviewed: Yes Throat Pain/Nasal Course/Dx - Course Course Of Treatment: Sinusitis with eustacian tube dysfunction. - Differential Dx/Diagnosis Provider Diagnoses: Sinusitis Discharge - Sign-Out/Discharge Documenting (check all that apply): Patient Departure All imaging exams completed and their final reports reviewed: No Studies - Discharge Plan Condition: Stable Disposition: HOME Prescriptions: Azithromycin TAB* [Zithromax TAB (Z-CRISTY) 250 mg #6 tabs] 2 tab PO .TODAY, THEN 1 DAILY #1 cristy Fluticasone NASAL SPRAY 50MCG* [Flonase NASAL SPRAY 50MCG*] 2 spray BOTH NARES DAILY #1 btl Ondansetron HCl [Zofran] 4 mg PO Q8H PRN #12 tablet PRN Reason: Nausea Patient Education Materials: Sinusitis (ED) Forms: *Work Release Referrals: Jimena Bassett PA [Primary Care Provider] - Additional Instructions: If you develop a fever, shortness of breath, chest pain, new or worsening symptoms - please call your PCP or go to the ED. - Billing Disposition and Condition Condition: STABLE Disposition: Home
== END 2017-12-28 17:30 | disposition home or self-care (01) ==
LOC: UCEAST 16:23
DX: J32.9 Chronic sinusitis, unspecified (principal); Z88.1 Allergy status to other antibiotic agents; Z88.5 Allergy status to narcotic agent
CPT/HCPCS: 99212; G0463

== ENCOUNTER 2018-05-20 18:47 | Emergency (ER) | payer MEDICAID, OTHER ==
[2018-05-20 19:09] VITALS: BP 118/76
[2018-05-20] MEDS ORDERED: Acetaminophen TAB* 325 MG PO ONE (19:29)
[2018-05-20] MEDS ORDERED: Albuterol/Ipratropium NEB.SOL* Albuterol 2.5 MG/Ipratropium 0.5 MG 3 ML INH ONE (19:29)
[2018-05-20] MEDS ORDERED: predniSONE TAB* 20 MG PO ONE (19:29)
--- NOTE | 2018-05-20 19:43 | UC ---
Shortness of Breath HPI - HPI Summary HPI Summary: C/O chest pain with breathing and SOB, much worse since doing a [employer] race today. Has been coughing x 2 months. Got a zpak in March with no improvement. Did use her inhaler at 1230 with some improvement. H/O asthma. - History of Current Complaint Chief Complaint: UCRespiratory Stated Complaint: CHEST PAIN,COUGH,SOB Hx Obtained From: Patient Hx Last Menstrual Period: 3 wks ago ?: No Onset/Duration: Gradual Onset, Lasting Weeks - 8, Worse Since - this afternoon. Timing: Constant Current Severity: Moderate Dyspnea At: Exertion Aggrevating Factors: Deep Breaths Alleviating Factors: Bronchodilators Associated Signs & Symptoms: Positive: Cough (Nonproductive), Wheezing, Chest Pain w/Cough. Negative: Fever - Risk Factors Pulmonary Embolism: Negative Cardiac: Negative - Allergy/Home Medications Allergies/Adverse Reactions: Allergies Allergy/AdvReac Type Severity Reaction Status Date / Time cefuroxime Allergy Nausea And Verified 05/20/18 19:03 Vomiting clavulanic acid Allergy Nausea And Verified 05/20/18 19:03 Vomiting codeine Allergy Nausea And Verified 05/20/18 19:03 Vomiting doxycycline Allergy Nausea And Verified 05/20/18 19:03 Vomiting Home Medications: Home Medications Albuterol HFA INHALER* [Ventolin HFA Inhaler*] 2 puff INH Q4H PRN 05/20/18 [ History Confirmed 05/20/18] PMH/Surg Hx/FS Hx/Imm Hx Respiratory History: Asthma Other History Of: Negative For: HIV, Hepatitis B, Hepatitis C, Anticoagulant Therapy - Surgical History Surgical History: Yes Surgery Procedure, Year, and Place: T&A. L foot surgery. tubes in ears - Family History Known Family History: Positive: Cardiac Disease, Hypertension, Diabetes, Other - Mother has IBS Negative: Renal Disease Family History: Mother has IBS - Social History Occupation: Employed Full-time Lives: With Family Alcohol Use: Occasionally Alcohol Amount: 3-4 weekends Substance Use Type: None Smoking Status (MU): Never Smoked Tobacco - Immunization History Most Recent Influenza Vaccination: Not this Season Vaccination Up to Date: Yes Review of Systems All Other Systems Reviewed And Are Negative: Yes Constitutional: Positive: Fatigue ENT: Positive: Nasal Discharge Respiratory: Positive: Shortness Of Breath, Cough Cardiovascular: Positive: Chest Pain Musculoskeletal: Positive: Myalgia Is Patient Immunocompromised?: No Physical Exam Triage Information Reviewed: Yes Appearance: Well-Nourished, Pain Distress Vital Signs: Initial Vital Signs Temp 98.6 F 05/20/18 19:04 Pulse 96 05/20/18 19:04 Resp 21 05/20/18 19:04 BP 118/76 05/20/18 19:04 Pulse Ox 99 05/20/18 19:04 Vital Signs Reviewed: Yes Eyes: Positive: Conjunctiva Inflamed ENT: Positive: Pharynx normal, Nasal congestion, TMs normal Neck exam: Normal Respiratory: Positive: Lungs clear, Wheezing - Expiratory wheezes with coughing.. Negative: Chest non-tender - diffusely tender to palpation. Left > right Cardiovascular Exam: Normal Abdomen Description: Positive: No Organomegaly, Soft. Negative: Nontender - diffuse abdominal wall tenderness Bowel Sounds: Positive: Present Musculoskeletal Exam: Normal Neurological Exam: Normal Psychological Exam: Normal Skin: Positive: Other - sunburn on the face Shortness of Breath Dx - Differential Dx/Diagnosis Differential Diagnosis/HQI/PQRI: Asthma, Chest Wall Pain, Pneumonia, Pneumothorax Provider Diagnosis: Asthma with acute exacerbation Discharge - Sign-Out/Discharge Documenting (check all that apply): Patient Departure All imaging exams completed and their final reports reviewed: No Studies - Discharge Plan Condition: Stable Disposition: HOME Prescriptions: Montelukast Sodium TAB* [Singulair 10 MG TAB*] 10 mg PO BEDTIME #30 tab predniSONE TAB* [Deltasone 20 MG TAB*] 60 mg PO DAILY #18 tab Patient Education Materials: Asthma (ED), Prednisone (By mouth), Montelukast ( By mouth) Referrals: Jimena Bassett PA [Primary Care Provider] - - Billing Disposition and Condition Condition: STABLE Disposition: Home
== END 2018-05-20 20:03 | disposition home or self-care (01) ==
LOC: UCCORT 18:47
DX: J45.901 Unspecified asthma with (acute) exacerbation (principal); R07.9 Chest pain, unspecified; M79.10 Myalgia, unspecified site; L55.9 Sunburn, unspecified; Z88.1 Allergy status to other antibiotic agents; Z88.0 Allergy status to penicillin; Z88.5 Allergy status to narcotic agent
CPT/HCPCS: 93005; 99213; A9270-GY; G0463; J7512

== ENCOUNTER 2018-07-10 16:19 | Emergency (ER) | payer MEDICAID, OTHER ==
--- OUTSIDE RECORDS SUMMARY | 2018-07-10 16:24 | XMS REPORT | Continuity of Care Document ---
:1995 External Reference #:[id number] Author Name Jimena Bassett PA Address [address] [place] [address] Care Team Providers Name Role Phone Jimena Bassett PA Care Team Information Director Radiation Oncology Unavailable Payers Date Identification Numbers Payment Provider Subscriber Policy Number: [id number] [facility] Deanna West PayID: [id number] [address] [place] [address] Advance Directives Description No Information Available Problems Date Description Provider Status Onset: 11/24/2010 No current problems or disability Active Family History Date Family Member(s) Observation Comments Father Good Health Father due to Cancer, Brain () Mother Good Health Paternal Grandfather Retinitis Pigmentosis. 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 Daquan Chicho j45.2 DO Albuterol 06/13/ Active Nebulizer (2.5mg/3ML 180ml 1 vial via J45.20 Vitale, Sulfate 2018 ) 0.083% nebulizer Daquan, every 4-6 DO hours as needed wheezing Montelukast 05/22/ Active Tablets 10mg 90tabs 1 by mouth J20.9 Vitale, Sodium 2018 every day Daquan, DO J30.9 J01.00 Ventolin HFA 03/23/2018 Active Aerosol 108(90Base) 18units 2 puffs J20.9 Vitale, mcg/Act every 4-6 Daquan, hours as DO needed for cough, wheezing, shortness of breath Trazodone 07/19/2017 Active Tablets 50mg 1 by mouth Vitale, HCL every Daquan, night at DO bedtime Hydrocortiso 04/17/2015 Active Cream 1% 28.350gm apply to L20.9 harrison Mccormick affected MD Altagracia areas twice a day until rash resolves Ibuprofen 04/17/2015 Active Tablets 600mg 60tabs 1 by mouth M25.55 Jace, three 1 MD Altagracia times a day x 1-2 weeks then as needed Azithromycin 03/23/2018 Hx Tablets 250mg 6tabs 2 tablets J20.9 Vitale, - by mouth Daquan, 03/28/2018 on day 1 DO then 1 tablet on days 2-5 Cetirizine 08/02/2017 Hx Tablets 10mg 90tabs 1 by mouth J30.9 Vitale, HCL - every day Daquan, 03/23/2018 DO Sertraline 07/19/2017 Hx Tablets 50mg 90tabs 1 by mouth Vitale, HCL - every day Daquan, 08/02/2017 DO Paroxetine 06/30/2017 Hx Tablets 10mg 30tabs 1 tablet F41.1 Vitale, HCL - by mouth Daquan, 07/19/2017 every DO morning Doxycycline 04/12/2017 Hx Capsules 100mg 20caps 1 tablet Vitale, Hyclate - by mouth Daquan, 04/22/2017 twice a DO day x 10 days Ondansetron 04/12/2017 Hx Tablets 4mg 15tabs 1 tablet Vitale, - Dispers every 8 Daquan, 03/23/2018 hours as DO needed Drospirenone 03/31/2017 Hx Tablets 3-0.02mg 28tabs 1 tablet Z01.41 Vitale, -Ethinyl - by mouth 9 Daquan, Estradiol 07/19/2017 daily DO Zithromax 03/29/2017 Hx Tablets 250mg 2 tabs Unknown Z-Gera - today then 04/02/2017 one tab x 4 days Prednisone 03/27/2017 Hx TBPK 10mg (48) taper as Unknown - directed 04/12/2017 over 12 days Meclizine 02/24/2017 Hx Tablets 25mg 30tabs 1 by mouth R42 Vitale, HCL - three Daquan, 03/23/2018 times DO daily as needed for dizziness Paroxetine 01/24/2017 Hx Tablets 20mg 30tabs 1 by mouth F33.9 Vitale, HCL - every Daquan, 06/30/2017 morning DO Hydroxyzine 01/24/2017 Hx Tablets 25mg 90tabs 1 by mouth F33.9 Vitale, HCL - up to [facility], 09/29/2017 three DO times daily for anxiety Nitrofuranto 12/20/2016 Hx Capsules 100mg 14caps 1 by mouth R39.15 Vitale, in Monohyd - twice a Daquan Macro 01/24/2017 day x 7 DO days Paroxetine 12/20/2016 Hx Tablets 10mg 30tabs 1 tablet F33.9 Vitale, HCL - by mouth Daquan, 01/24/2017 every DO morning Azithromycin 09/27/2016 Hx Tablets 250mg 6tabs 2 tablets J01.00 Serjio , - by mouth Jimena 12/20/2016 on day 1 PA then 1 tablet on days 2-5 Azithromycin 11/19/2015 Hx Tablets 250mg 6tabs 2 by mouth R05 Jace, - today, MD Altagracia 09/27/2016 then 1 by mouth daily x 4 more days Escitalopram 12/27/2014 Hx Tablets 5mg 30tabs 1 by mouth F41.1 Ana Maria Mccormick - every day MD Altagracia 08/21/2015 dx ; anxiety Fluticasone 11/19/2014 Hx Suspension 50mcg/Act 16units 1 spray 465.9 Vitale, Propionate - each Daquan, 11/29/2014 nostril DO twice a day Ortho Evra 07/30/2013 Hx Patches 150-35mcg/24 36units 1 patch to Jace, - Weekly HR skin MD Altagracia 12/20/2016 weekly x 3 weeks, then off 1 week. Sertraline Hx Tablets 50mg 1 by mouth Unknown HCL - every day 03/23/2018 Medications Administered in Office Medication Date Status Form Strength Qnty SIG Indications Ordering Provider PPD Administered Injection Schedule, 8 Nurses PPD Administered Injection Schedule, 6 Nurses Immunizations CPT Code Status Date Vaccine Reaction Lot # 39780 Given 12/01/2011 Afluria Or Fluvirin Flu Vac VIS DATE 09/13/11 Intramuscular 38770 Given 01/22/2011 Influenza Intranasal Vaccine, Live VIS DATE 10/06/10 Virus 73404 Given 06/16/2009 Tdap (Adacel) Ages 7 And Above Only 96829 Given 11/14/2007 Varicella (Chicken Pox) OTHER PROVIDER Immunization 09316 Given 11/14/2007 HPV Vaccine (Gardasil) 3 Dose OTHER PROVIDER Schedule 16761 Given 11/07/2007 Tdap (Adacel) Ages 7 And Above Only OTHER PROVIDER 45218 Given 12/22/2006 HPV Vaccine (Gardasil) 3 Dose OTHER PROVIDER Schedule 71656 Given 10/27/2006 HPV Vaccine (Gardasil) 3 Dose OTHER PROVIDER Schedule 30164 Given 01/17/2001 Pneumococcal (Prevnar 7)Child Under DR LOFTON Five 49371 Given 10/22/1999 IPV / Poliomyelitis Immunization DR LOFTON 52983 Given 10/22/1999 DTaP Immunization 7 Yrs & Younger DR LOFTON 15561 Given 12/16/[address] LOFTON 11060 Given 05/03/1996 DTP & Hib Immunization DR LOFTON 29782 Given 01/26/1996 Varicella (Chicken Pox) DR LOFTON Immunization 31405 Given 01/26/[address] LOFTON 66747 Given 07/11/1995 Hepatitis B Vac Ped/Adolescent 3 DR LOFTON Dose Schedule 04984 Given 04/11/1995 DTP & Hib Immunization DR LOFTON 26295 Given 04/11/[address] LOFTON 23789 Given 02/08/1995 Hepatitis B Vac Ped/Adolescent 3 DR LOFTON Dose Schedule 08150 Given 02/08/1995 DTP & Hib Immunization DR LOFTON 21748 Given 02/08/[address] LOFTON 40685 Given 1994 Hepatitis B Vac Ped/Adolescent 3 DR LOFTON Dose Schedule 94886 Given 1994 DTP & Hib Immunization DR LOFTON 57645 Given 1994 IPV / Poliomyelitis Immunization DR LOFTON Vital Signs Date Vital Result Comment 06/13/2018 10:36am Weight 173.00 lb Heart Rate 92 /min BP Systolic 108 mmHg BP Diastolic 68 mmHg Respiratory Rate 18 /min Height 63 inches 5'3" 03/31/17 O2 % BldC Oximetry 100 % BMI (Body Mass Index) 30.6 kg/m2 03/23/2018 11:34am Body Temperature 98.4 F Weight 173.00 lb Heart Rate 90 /min BP Systolic 110 mmHg BP Diastolic 70 mmHg Respiratory Rate 18 /min Height 63 inches 5'3" 03/31/17 O2 % BldC Oximetry 98 % BMI (Body Mass Index) 30.6 kg/m2 09/29/2017 9:36am Weight 177.00 lb Heart Rate 80 /min BP Systolic 126 mmHg BP Diastolic 74 mmHg Respiratory Rate 18 /min Height 63 inches 5'3" 03/31/17 BMI (Body Mass Index) 31.4 kg/m2 08/02/2017 11:30am Body Temperature 98.9 F Weight 173.00 lb Heart Rate 84 /min BP Systolic 118 mmHg BP Diastolic 68 mmHg Respiratory Rate 18 /min Height 63 inches 5'3" 03/31/17 BMI (Body Mass Index) 30.6 kg/m2 07/19/2017 10:09am Weight 174.00 lb Heart Rate 72 /min BP Systolic 110 mmHg BP Diastolic 70 mmHg Respiratory Rate 18 /min Height 63 inches 5'3" 03/31/17 BMI (Body Mass Index) 30.8 kg/m2 06/30/2017 11:33am Weight 172.00 lb Heart Rate 74 /min BP Systolic 120 mmHg BP Diastolic 68 mmHg Respiratory Rate 18 /min Height 63 inches 5'3" 03/31/17 BMI (Body Mass Index) 30.5 kg/m2 04/12/2017 10:34am Body Temperature 98.3 F tympanic Weight 165.00 lb Heart Rate 76 /min BP Systolic 116 mmHg BP Diastolic 78 mmHg Respiratory Rate 16 /min Height 63 inches 5'3" 03/31/17 BMI (Body Mass Index) 29.2 kg/m2 03/31/2017 10:15am Weight 166.00 lb Heart Rate 86 /min BP Systolic 116 mmHg BP Diastolic 72 mmHg Respiratory Rate 14 /min Height 63 inches 5'3" BH 03/31/17 BMI (Body Mass Index) 29.4 kg/m2 Last Menstrual Period [id number] 02/24/2017 11:34am Weight 161.00 lb Heart Rate 78 /min BP Systolic 120 mmHg BP Diastolic 80 mmHg Respiratory Rate 16 /min Height 63 inches 5'3" 09/27 BMI (Body Mass Index) 28.5 kg/m2 Last Menstrual Period [id number] 01/24/2017 11:47am Weight 160.00 lb Heart Rate 72 /min BP Systolic 130 mmHg BP Diastolic 70 mmHg Respiratory Rate 18 /min Height 63 inches 5'3" 09/27 BMI (Body Mass Index) 28.3 kg/m2 12/20/2016 2:49pm Weight 161.00 lb Heart Rate 76 /min BP Systolic 120 mmHg BP Diastolic 70 mmHg Respiratory Rate 18 /min Height 63 inches 5'3" 09/27 BMI (Body Mass Index) 28.5 kg/m2 09/27/2016 1:44pm Body Temperature 99.1 F Weight 165.00 lb Heart Rate 72 /min BP Systolic 136 mmHg BP Diastolic 70 mmHg Respiratory Rate 18 /min Height 63 inches 5'3" 09/27 BMI (Body Mass Index) 29.2 kg/m2 02/20/2016 11:23am Body Temperature 98.1 F Weight 162.00 lb Heart Rate 80 /min BP Systolic 110 mmHg BP Diastolic 80 mmHg Respiratory Rate 18 /min Height 63 inches 5'3" 04/10/15 BMI (Body Mass Index) 28.7 kg/m2 11/19/2015 9:28am Body Temperature 97.1 F Weight 164.00 lb Heart Rate 80 /min BP Systolic 122 mmHg BP Diastolic 70 mmHg Respiratory Rate 18 /min Height 63 inches 5'3" 04/10/15 BMI (Body Mass Index) 29.0 kg/m2 08/21/2015 2:14pm Weight 156.00 lb Heart Rate 60 /min BP Systolic 110 mmHg BP Diastolic 80 mmHg Respiratory Rate 18 /min Height 63 inches 5'3" 04/10/15 BMI (Body Mass Index) 27.6 kg/m2 04/17/2015 4:39pm Weight 165.00 lb Heart Rate 76 /min BP Systolic 120 mmHg BP Diastolic 70 mmHg Respiratory Rate 18 /min Height 63 inches 5'3" 04/10/15 BMI (Body Mass Index) 29.2 kg/m2 04/10/2015 4:11pm Body Temperature 97.3 F Weight 165.00 lb Heart Rate 76 /min BP Systolic 122 mmHg BP Diastolic 70 mmHg Respiratory Rate 18 /min Height 63 inches 5'3" 04/10/15 BMI (Body Mass Index) 29.2 kg/m2 01/10/2015 1:15pm Weight 155.00 lb Heart Rate 78 /min BP Systolic 112 mmHg BP Diastolic 70 mmHg Respiratory Rate 18 /min 12/27/2014 1:00pm Body Temperature 98.1 F Weight 152.00 lb Heart Rate 76 /min BP Systolic 112 mmHg BP Diastolic 70 mmHg Respiratory Rate 18 /min Height 64 inches 5'4" 08/01/14 BMI (Body Mass Index) 26.1 kg/m2 11/19/2014 1:09pm Body Temperature 98.8 F Weight 151.00 lb Heart Rate 72 /min BP Systolic 120 mmHg BP Diastolic 60 mmHg Respiratory Rate 18 /min Height 64 inches 5'4" 08/01/14 BMI (Body Mass Index) 25.9 kg/m2 08/01/2014 10:59am Weight 149.00 lb Heart Rate 70 /min BP Systolic 102 mmHg BP Diastolic 62 mmHg Respiratory Rate 18 /min Height 64 inches 08/01/14 BMI (Body Mass Index) 25.6 kg/m2 11/19/2013 11:30am Weight 150.00 lb Heart Rate 68 /min BP Systolic 122 mmHg BP Diastolic 70 mmHg Respiratory Rate 18 /min Height 64 inches 5'4"( Done On 06/29/13) 11/05/2013 3:14pm Weight 150.00 lb Heart Rate 80 /min BP Systolic 102 mmHg BP Diastolic 60 mmHg Respiratory Rate 18 /min Height 64 inches 5'4"( Done On 06/29/13) 07/30/2013 2:44pm Weight 150.00 lb Heart Rate 76 /min BP Systolic 120 mmHg BP Diastolic 60 mmHg Respiratory Rate 18 /min Height 64 inches 5'4"( Done On 06/29/13) 06/29/2013 3:03pm Weight 147.00 lb Heart Rate 68 /min BP Systolic 120 mmHg BP Diastolic 80 mmHg Respiratory Rate 18 /min Height 64 inches 5'4"( Done On 06/29/13) 12/01/2011 9:59am Weight 128.00 lb Heart Rate 88 /min BP Systolic 116 mmHg BP Diastolic 70 mmHg Respiratory Rate 18 /min Height 63 inches 5'3" (Done On 04/22/11) 04/22/2011 4:13pm Body Temperature 98.6 F Weight 130.00 lb Heart Rate 76 /min BP Systolic 100 mmHg BP Diastolic 58 mmHg Respiratory Rate 16 /min Height 63 inches 5'3" 01/22/2011 2:49pm Weight 132.00 lb Heart Rate 72 /min BP Systolic 120 mmHg BP Diastolic 80 mmHg Respiratory Rate 16 /min Height 63 inches 5'3" (Done On 10/22/10) 12/04/2010 3:19pm Weight 136.56 lb Heart Rate 80 /min BP Systolic 110 mmHg BP Diastolic 62 mmHg Respiratory Rate 17 /min Height 63 inches 5'3" 11/30/2010 3:20pm Weight 134.44 lb Heart Rate 66 /min BP Systolic 122 mmHg BP Diastolic 82 mmHg Respiratory Rate 16 /min Height 63 inches 5'3" 11/24/2010 10:01am Weight 134.50 lb Up 3# Heart Rate 64 /min BP Systolic 118 mmHg R/Reg BP Diastolic 78 mmHg R/Reg Respiratory Rate 20 /min Height 63 inches 5'3" 10/22/2010 2:08pm Weight 131.00 lb Heart Rate 82 /min BP Systolic 102 mmHg BP Diastolic 72 mmHg Respiratory Rate 20 /min Height 63 inches 5'3" 07/17/2010 9:55am Body Temperature 98.4 F Weight 133.00 lb Heart Rate 88 /min BP Systolic 116 mmHg BP Diastolic 70 mmHg Respiratory Rate 15 /min Height 62.75 inches 5'2.75" 06/09/2010 1:58pm Weight 134.00 lb Heart Rate 80 /min BP Systolic 110 mmHg Ilckg913/64 Aro084/62 Jndnt910/64 BP Diastolic 60 mmHg Evipt432/64 Jtj304/62 Wwxxu560/64 Respiratory Rate 16 /min 2009 2:02pm Body Temperature 98.2 F Weight 126.00 lb Heart Rate 88 /min BP Systolic 112 mmHg BP Diastolic 60 mmHg Respiratory Rate 16 /min 12/04/2009 3:29pm Body Temperature 98.9 F Weight 126.00 lb Heart Rate 68 /min BP Systolic 108 mmHg l arm BP Diastolic 64 mmHg l arm Respiratory Rate 18 /min 10/07/2009 3:36pm Weight 122.31 lb Heart Rate 79 /min BP Systolic 118 mmHg BP Diastolic 80 mmHg 07/28/2009 4:17pm Body Temperature 99.4 F Weight 125.00 lb Heart Rate 84 /min BP Systolic 110 mmHg BP Diastolic 64 mmHg Respiratory Rate 16 /min 07/03/2009 3:43pm Body Temperature 98.7 F Weight 127.00 lb Heart Rate 76 /min BP Systolic 104 mmHg BP Diastolic 70 mmHg Respiratory Rate 16 /min 06/16/2009 2:43pm Weight 127.00 lb Heart Rate 80 /min BP Systolic 104 mmHg BP Diastolic 60 mmHg Respiratory Rate 16 /min Height 63.25 inches 5'3.25" Results Test Date Facility Test Result H/L Range Note Laboratory test [facility] HCG,Serum NEGATIVE (Negative) 1 finding 8 (315)- - (Qualitative) LDL Cholesterol [facility] Cholesterol 136 mg/ dL <200 2 Profile 8 (315)- - Triglycerides 94 mg/dL <150 3 HDL Cholesterol 47 mg/dL >40 4 LDL-Cholesterol 70 mg/dL < 100 5 Laboratory test 07/08/2017 [facility] Treponema Negative Negative 6 finding (315)- - Antibody [place] Laboratory test 03/31/2017 [facility] Pap Smear Thin SEE NOTE 7 finding Prep GC/Chlamydia By 03/31/2017 [facility] Chlamydia by Dna Negative Negative Dna Probe Probe GC by Dna Probe Negative Negative Laboratory test finding 02/24/2017 [facility] HCG,Quant Preg <1 mU/mL 8 HCG, Qual. Serum NEGATIVE (Neg) 9 CBC With Auto Diff 02/24/2017 [facility] WBC 7.9 10*3/uL (4.1-11.0) RBC 5.02 10*6/uL (4.00-5.40) HGB 13.8 g/dL (12.0-16.0) HCT 42.1 % (36.0-47.0) MCV 83.8 fL (80.0-95.0) MCH 27.6 pg (27.0-32.0) MCHC 32.9 g/dL (32.0-36.0) RDW 13.4 % (10.5-14.5) PLT 331 10*3/uL (150-450) Neut % 63.0 % (35.0-75.0) Lymph % 28.8 % (16.0-52.0) Long % 6.0 % (0.0-8.0) Eos % 1.5 % (0.0-5.0) Baso % 0.7 % (0.0-4.0) Neut # 5.0 10*3/uL (1.8-7.7) Lymph # 2.3 10*3/uL (1.2-4.8) Long # 0.5 10*3/uL (0.0-0.8) Eos # 0.1 10*3/uL (0.0-0.5) Baso # 0.1 10*3/uL (0.0-0.2) 10 Laboratory test 12/20/2016 [facility] Urine Culture Microbiology res 11 finding <SEE NOTE> CBS W/Automated 04/01/2016 [facility] White Blood 7.4 K/ uL N 3.1-10 12 Diff (315)- - Count .7 Red Blood Count 5.05 M/uL N 3.90-5.40 Hemoglobin 14.2 gm/dL N 11.6-15.8 Hematocrit 41.8 % N 36.0-46.1 Mean Cell Volume 82.8 fl N 80.9-99.0 Mean Corpuscular HGB 28.1 pg N 25.9-32.7 Mean Corpuscular HGB Conc 34.0 g/dL N 30.8-34.3 Platelet Count 359 K/uL N 155-360 Red Cell Distri Width SD 40.0 fl N 3-47 Red Cell Distri Width %CV 13.6 % N 11.7-14.4 Mean Platelet Volume 9.9 fL N 8.9-12.4 Neut% 62.0 % N 40.4-72.8 Lymph % 30.2 % N 20.0-42.0 Long % 5.9 % N 4.3-13.2 Eo% 1.6 % N 0.0-6.6 Bas% 0.3 % N 0.0-1.1 Neut# 4.60 K/uL N 1.8-7.0 Lymph # 2.24 K/uL N 1.0-4.0 Long # 0.44 K/uL N 0.3-0.9 Eos # 0.12 K/uL N 0.0-0.5 Baso # 0.02 K/uL N 0.0-0.1 Comprehensive Metabolic 04/01/2016 [facility] Glucose 83 mg/dL N 74-106 Panel (315)- - BUN 7 mg/dL N 7-18 Creatinine 0.9 mg/dL N 0.6-1.3 Glom Filtration Rate, Estimate >60 mL/min N >60 If >60 mL/min N >60 13 BUN/Creat 7.7 ratio N Sodium 141 mmol/L N 136-145 Potassium 3.4 mmol/L Low 3.5-5.1 Chloride 109 mmol/L High 98-107 Carbon Dioxide 23 mmol/L N 21-32 Anion Gap 9 mEq/L N 8-16 Calcium 8.3 mg/dL Low 8.5-10.1 Total Protein 7.8 g/dL N 6.4-8.2 Albumin 3.4 g/dL N 3.4-5.0 Globulin 4.4 g/dL High 1.9-4.3 Alb/Glob 0.8 ratio N Bilirubin,Total 0.3 mg/dL N 0.2-1.0 Sgot/Ast 10 U/L Low 15-37 14 SGPT/Alt 20 U/L N 12-78 Alkaline Phosphatase 63 U/L N 45-117 Ova & Parasite 03/30/2016 [facility] Cryptosporidium NEGATIVE FOR 15, 16 Antigen Screen (315)- - Specific Ag CRY <SEE NOTE> Giardia Specific Antigen NEGATIVE FOR KARLEE <SEE NOTE> 17 Laboratory test finding 02/20/2016 [facility] TSH 2.12 uIU/mL 0.35-4.94 CBC With Auto Diff 02/20/2016 [facility] WBC 7.1 K/uL 4.1-11.0 RBC 5.00 M/uL 4.00-5.40 Hemoglobin 14.0 gm/dL 12.0-16.0 Hematocrit 41.6 % 36.0-47.0 MCV 83.3 fL 80.0-97.0 MCH 28.0 pg 27.0-32.0 MCHC 33.7 g/dL 32.0-36.0 RDW 13.7 % 11.5-14.5 PLT Count 359 K/ul 140-400 Neutrophil 60.2 % 35.0-75.0 Lymphocyte 32.5 % 16.0-52.0 Monocyte 5.8 % 2.0-10.0 Eosinophil 1.0 % 0.0-5.0 Basophil 0.5 % 0.0-4.0 Abs Neutrophils 4.2 K/uL 2.1-8.0 Abs Lymphocytes 2.3 K/uL 0.8-5.5 Abs Monocytes 0.4 K/uL 0.1-1.0 Abs Eosinophils 0.1 K/uL 0.0-0.5 Abs Basophils 0.0 K/uL 0.0-0.3 Hepatic Panel (LFT) 02/20/2016 [facility] Total Protein 7.0 g/dL 6.0-8.0 Albumin 4.2 g/dL 3.6-4.9 Total Bilirubin 0.5 mg/dL 0.1-1.3 Direct Bilirubin 0.1 mg/dL 0.0-0.4 Alkaline Phosphatase 49 U/L 24-140 Alt 12 U/L 3-42 Ast 13 U/L 8-42 Basic (BMP) 02/20/2016 [facility] Sodium 136 mmol/L 134-142 Potassium 4.1 mmol/L 3.5-5.2 Chloride 102 mmol/L 97-109 Carbon Dioxide 28 mmol/L 24-34 Glucose 79 mg/dL 70-105 BUN 10 mg/dL 6-26 Creatinine 0.8 mg/dL 0.5-1.4 Calcium 8.8 mg/dL 8.5-10.2 Anion Gap 10 mmol/L 6-14 Non Aparna Egfr >60 >60 18 Aparna Egfr >60 >60 19 Laboratory test 02/20/2016 [facility] CRP (C-Reactive) 0.87 mg/dL High 0.00- 0.75 finding Esr 4 mm/hr 0-20 Celiac Disease 08/01/2014 [facility] Gliadin Peptide 40 [arb'U] High (<20) 20, 21 Panel-RL Iga Gliadin Peptide Igg 5 [arb'U] (<20) 22 Iga @ 127 mg/dL (71-374) Transglutaminase Iga 4 [arb'U] (<20) 23 Transglutaminase Igg 2 [arb'U] (<20) 24 Lipid 08/01/2014 [facility] Cholesterol 176 mg/dL 50-199 Triglycerides 124 mg/dL 30-200 HDL 58 mg/dL 35-85 25 Chol/ HDL Ratio 3.0 ratio Low 3.7-5.6 VLDL 25 mg/dL 2-29 LDL (Calc) 93 mg/dL 20-99 26 Comprehensive Metabolic (CMP) 08/01/2014 [facility] Sodium 136 mmol/L 134- 142 Potassium 4.4 mmol/L 3.5-5.2 Chloride 103 mmol/L 97-109 Carbon Dioxide 27 mmol/L 24-34 Glucose 84 mg/dL 70-105 BUN 9 mg/dL 6-26 Creatinine 0.9 mg/dL 0.5-1.4 Calcium 9.7 mg/dL 8.5-10.2 Total Protein 7.4 g/dL 6.0-8.0 Albumin 4.6 g/dL 3.6-4.9 Globulin 2.8 g/dL 2.0-3.5 A/G Ratio 1.6 Ratio 1.0-2.2 Total Bilirubin 0.5 mg/dL 0.1-1.3 Alkaline Phosphatase 44 U/L 24-140 Alt 11 U/L 3-42 Ast 13 U/L 8-42 Anion Gap 10 mmol/L 6-14 Aparna Egfr >60 >60 27 Non Aparna Egfr >60 >60 28 Laboratory test finding 08/01/2014 [facility] TSH 1.68 uIU/mL 0.35-4.94 CBC With Auto Diff 08/01/2014 [facility] WBC 7.2 K/uL 4.1-11.0 RBC 5.04 M/uL 4.00-5.40 Hemoglobin 14.4 gm/dL 12.0-16.0 Hematocrit 44.2 % 36.0-47.0 MCV 87.7 fL 80.0-97.0 MCH 28.6 pg 27.0-32.0 MCHC 32.6 g/dL 32.0-36.0 RDW 13.5 % 11.5-14.5 PLT Count 336 K/ul 140-400 Neutrophil 64.6 % 35.0-75.0 Lymphocyte 28.5 % 16.0-52.0 Monocyte 4.8 % 2.0-10.0 Eosinophil 1.2 % 0.0-5.0 Basophil 0.9 % 0.0-4.0 Abs Neutrophils 4.6 K/uL 2.1-8.0 Abs Lymphocytes 2.0 K/uL 0.8-5.5 Abmon 0.3 K/uL 0.1-1.0 Abs Eosinophils 0.1 K/uL 0.0-0.5 Abs Basophils 0.1 K/uL 0.0-0.3 Laboratory test 11/05/2013 N2N/CCD Import Antigliadin Abs, IgA 5 units 0 -19 29 finding Antigliadin Abs, IgG 56 units High 0-19 30 Endomysial IgA Antibody Negative Negative Immunoglobulin A 125 mg/dL 91-414 t-Transglutaminase IgA <2 U/mL 0-3 31 t-Transglutaminase IgG <2 U/mL 0-5 32 Laboratory test finding 06/09/2010 N2N/CCD Import Atypical Lymph% 1 % 0- 7 Ebv AB Vca,Igg >8.0 High 0.0-0.8 33 Ebv AB Vca,Igm 0.8 AI 0.0-0.8 34 Ebv Early Antigen AB, IgG 0.4 AI 0.0-0.8 35 Ebv Interpretation See Note 36 Ebv Nuclear Antigen AB, Igg 7.0 AI High 0.0-0.8 37 Eosinophil% 2 % Hematocrit 43.1 % 36.0-46.0 Hemoglobin 14.1 gm/dL 12.0-16.0 Lymph% 38 % 17-56 Mean Cell Volume 86.4 fl 77.0-95.0 Mean Corpuscular HGB 28.3 pg 25.0-30.0 Mean Corpuscular HGB Conc 32.7 g/dL 30.8-34.3 Mean Platelet Volume 10.2 fL 8.9-12.4 Monocyte% 5 % 0-10 Neutrophils% 54 % 28-68 Platelet Count 343 K/uL 155-360 Platelet Estimate Normal RBC Morphology Normal Red Blood Count 4.99 M/uL 4.10-5.10 Red Cell Distri Width %CV 13.2 % 11.7-14.4 Total Cells Counted 100 #CELLS White Blood Count 9.5 K/uL 4.5-13.5 Laboratory test finding 2009 N2N/CCD Import Anion Gap 15 mmol/L 10 -20 38 BUN 12 mg/dL 7-18 BUN/CR Ratio 14.3 Ratio 12-20 Calcium 9.6 mg/dL 8.7-10.5 Carbon Dioxide 25 mmol/L 22-30 Chloride 104 mmol/L 98-107 Creatinine, Serum 0.8 mg/dL 0.7-1.2 Esr (Sed Rate/Westergren) 4 SEC 0-25 Glucose 73 mg/dL 65-105 Potassium 4.0 mmol/L 3.6-5.0 Sodium 140 mmol/L 137-145 TSH 1.422 uIU/ml 0.50-6.00 Hepatic Function 2009 N2N/CCD Import Albumin 4.8 g/dL 3.5-5.0 Alkaline Phosphatase 63 U/L 60-300 Alt 29 U/L 9-52 Ast 26 U/L 14-36 Total Bilirubin 0.5 mg/dL 0.2-1.3 Total Protein 8.3 g/dL High 6.3-8.2 Laboratory test finding 2009 N2N/CCD Import Hematocrit 38.1 % 36.0 -46.0 Hemoglobin 12.7 gm/dL 12.0-16.0 Lymph% 46 % 17-56 Mean Cell Volume 84.7 fl 77.0-95.0 Mean Corpuscular HGB 28.2 pg 25.0-30.0 Mean Corpuscular HGB Conc 33.3 g/dL 30.8-34.3 Mean Platelet Volume 10.1 fL 8.9-12.4 Monocyte% 4 % 0-10 Monoscreen (Heterophile) Negative Negative 39 Neutrophils% 50 % 28-68 Platelet Count 282 K/uL 155-360 Platelet Estimate Normal RBC Morphology Normal Red Blood Count 4.50 M/uL 4.10-5.10 Red Cell Distri Width %CV 13.2 % 11.7-14.4 Total Cells Counted 100 #CELLS White Blood Count 7.5 K/uL 4.5-13.5 Laboratory test 12/04/2009 N2N/CCD Import Absolute 0.039 K/ul 0.0-0.3 finding Basophils Absolute Eosinophils 0.058 K/ul 0.0-0.5 Absolute Lymphocytes 2.49 K/ul 0.8-4.8 Absolute Monocytes 0.426 K/ul 0.1-1.0 Absolute Neutrophils 2.53 K/ul 2.05-7.63 Basophil 0.7 % 0-2 Eosinophil 1.0 % 0-4 Hematocrit 40.4 % 37.0-51.0 Hemoglobin 13.6 GM/dl 12.0-16.0 Lymphocytes 44.9 % High 20-44 MCH 28.4 pg 26.0-32.0 MCHC 33.7 g/dL 31.0-36.0 MCV 85 FL 80-97 Monocytes 7.7 % 2-10.0 Neutrophils 45.6 % Low 50-70 Platelet Count 284 K/ul 140-440 RBC 4.78 M/ul 4.2-6.3 RDW 12.4 % 11.5-14.5 WBC 5.5 K/ul 4.1-10.9 Laboratory test 12/04/2009 N2N/CCD Import Monoscreen Negative Negative 40 finding (Heterophile) Laboratory test 06/19/2009 N2N/CCD Import A/G Ratio 1.7 1.0-2.2 finding Absolute Basophils 0.048 K/ul 0.0-0.3 Absolute Eosinophils 0.078 K/ul 0.0-0.5 Absolute Lymphocytes 1.98 K/ul 0.8-4.8 Absolute Monocytes 0.411 K/ul 0.1-1.0 Absolute Neutrophils 3.30 K/ul 2.05-7.63 Albumin 5.0 g/dL 3.5-5.0 Alkaline Phosphatase 60 U/L 60-300 Alt 11 U/L 9-52 Ast 19 U/L 14-36 BUN 12 mg/dL 7-18 BUN/CR Ratio 15.9 Ratio 12-20 Basophil 0.8 % 0-2 Calcium 9.5 mg/dL 8.7-10.5 Carbon Dioxide 26 mmol/L 22-30 Chloride 102 mmol/L 98-107 Creatinine, Serum 0.8 mg/dL 0.7-1.2 Eosinophil 1.3 % 0-4 Globulin 3.0 g/dL 2.7-4.3 Glucose 79 mg/dL 65-105 Hematocrit 41.6 % 37.0-51.0 Hemoglobin 14.3 GM/dl 12.0-16.0 Lymphocytes 34.1 % 20-44 MCH 28.5 pg 26.0-32.0 MCHC 34.4 g/dL 31.0-36.0 MCV 83 FL 80-97 Monocytes 7.1 % 2-10.0 Neutrophils 56.7 % 50-70 Platelet Count 333 K/ul 140-440 Potassium 3.9 mmol/L 3.6-5.0 RBC 5.03 M/ul 4.2-6.3 RDW 12.1 % 11.5-14.5 Sodium 140 mmol/L 137-145 TSH 1.947 uIU/ml 0.50-6.00 Total Bilirubin 0.6 mg/dL 0.2-1.3 Total Protein 8.0 g/dL 6.3-8.2 WBC 5.8 K/ul 4.1-10.9 1 PSYCH SERVICES 2 Reference Guidelines*: Desirable: ........... < 200 mg/dL Borderline High: ..... 200-239 mg/dL High: ................ >=240 mg/dL * The National Cholesterol Education Program (NCEP) 3 Reference Guidelines*: Normal: ............. < 150 mg/dL Borderline High: .... 150-199 mg/dL High: ............... 200-499 mg/dL Very High: .......... > 500 mg/dL * Source: National Cholesterol Education Program (NCEP) 4 Reference Guidelines*: Low HDL: ..... < 40 mg/dL Normal: ..... 40-60 mg/dL Desirable: ... > 60 mg/dL *The National Cholesterol Education Program(NCEP) 5 Reference Guidelines*: Optimal:........... <100 mg/dL Near Optimal....... 100-129 mg/dL Borderline High.... 130-159 mg/dL High............... 160-189 mg/dL Very High.......... >=190 mg/dL * Source: National Cholesterol Education Program (NCEP) 6 Performed at: - [facility] [id number] Orthotist: Saurabh Mckeon MD, Phone: [phone] [facility]. [address] [place] [id number] CYTOLOGY REPORT Source of Specimen(s): Thin Prep Cervical Pap Smear - One Vial Date of Last Menstrual Period: 03/24/17 Other Clinical Conditions: REFLEX TO HPV ASSAY IF RESULTS OF THIS PAP ARE ASCUS Specimen Adequacy SATISFACTORY FOR EVALUATION ABSENCE OF ENDOCERVICAL/TRANSFORMATION ZONE COMPONENT General Categorization NEGATIVE FOR INTRAEPITHELIAL LESION OR MALIGNANCY Interpretation NEGATIVE FOR INTRAEPITHELIAL LESION OR MALIGNANCY Reported: 04/04/2017 07:07 Electronically Signed Out By Jena BOWENS rzd ICD9 Code: Z01.419 Unless otherwise specified, testing performed by [facility] [place] [address] 8 INTERPRETATION: LESS THAN 6 NEGATIVE 6 - 10 BORDERLINE (SUGGEST REPEAT IN 48 HOURS) APPROX HCG RANGE WEEKS POST LMP 11 - 130 3 - 4 WEEKS 75 - 2600 4 - 5 WEEKS 850 - 37740 5 - 6 WEEKS 4000 - [id number] 6 - 7 WEEKS 16686 - [id number] 7 - 12 WEEKS 53265 - 177355 12 - 16 WEEKS 1400 - 48892 16 - 29 WEEKS 940 - 76553 29 - 41 WEEKS Unless otherwise specified, testing performed by [facility] [place] [address] 9 Unless otherwise specified, testing performed by [facility] [place] [address] 10 Unless otherwise specified, testing performed by [facility] [place] [address] 11 Microbiology results SOURCE Random urine COLONY COUNT <10,000 FINAL RESULT Mixed urethral tisha consistent with contamination. No further workup. 12 PROCEDURE DONE YESTERDAY,CP 13 Note: Persistent reduction for 3 months or more in an eGFR <60 mL/min/1.73 m2 defines CKD. Patients with eGFR values >/=60 mL/min/1.73 m2 may also have CKD if evidence of persistent proteinuria is present. The original MDRD equation for estimated GFR is not valid for patients less than 18 years of age. Additional information may be found at www.kdoqi.org. 14 Values below the stated reference ranges of AST and ALT can be seen in normal populations. Clinical correlation is suggested. 15 R10.9 16 NEGATIVE FOR CRYPTOSPORIDIUM SPECIFIC ANTIGEN 17 NEGATIVE FOR GIARDIA SPECIFIC ANTIGEN. The specimen will be held for 5 days. Additional testing may be performed upon request if the antigen tests are negative, and the patient is still symptomatic or has traveled to an endemic region. 18 Concerning GFR Guidelines: Normal function or mild renal disease, if clinically at risk: >/=60 mL/min Moderately decreased: 30-59 Severely decreased: 15-29 Renal failure: <15 Glomerular Filtration Rate (GFR) is estimated based on the MDRD equation, which assumes a steady state for creatinine as recommended by the National Kidney Disease Education Program in conjunction with the National Institutes of Health and the National Kidney Foundation. Clinical conditions in which it may be necessary to measure GFR by using clearance methods include extremes of age and body size, severe malnutrition or obesity, diseases of skeletal muscle, paraplegia or quadriplegia, vegetarian diet, rapidly changing kidney function, and calculation of the dose of potentially toxic drugs that are excreted by the kidneys. 19 Concerning GFR Guidelines for Americans: Normal function or mild renal disease, if clinically at risk: >/=60 mL/min Moderately decreased: 30-59 Severely decreased: 15-29 Renal failure: <15 20 today 21 INTERPRETATION OF RESULTS: < 20 UNITS NEGATIVE 20-30 UNITS WEAK POSITIVE > 30 UNITS MODERATE TO STRONG POSITIVE The following result was obtained with the INOVA QUANTA Lite Gliadin IgA II. Results obtained with other manufacturers' assay methods may not be used interchangeably. The magnitude of the reported IgA level cannot be correlated to an endpoint titer. 22 INTERPRETATION OF RESULTS: < 20 UNITS NEGATIVE 20-30 UNITS WEAK POSITIVE > 30 UNITS MODERATE TO STRONG POSITIVE The following result was obtained with the INOVA QUANTA Lite Gliadin IgG II. Results obtained with other manufacturers' assay methods may not be used interchangeably. The magnitude of the reported IgG levels cannot be correlated to an endpoint titer. 23 INTERPRETATION OF RESULTS: < 20 UNITS NEGATIVE 20-30 UNITS WEAK POSITIVE > 30 UNITS MODERATE TO STRONG POSITIVE The following result was obtained with the INOVA QUANTA Lite h-tTG IgA BEAU. Results obtained with other manufacturers' assay methods may not be used interchangeably. The magnitude of the reported IgA level cannot be correlated to an endpoint titer. Performed at [address] [place] [address] 24 INTERPRETATION OF RESULTS: < 20 UNITS NEGATIVE 20-30 UNITS WEAK POSITIVE > 30 UNITS MODERATE TO STRONG POSITIVE The following result was obtained with the INOVA QUANTA Lite h-tTG IgG BEAU. Results obtained with other manufacturers' assay methods may not be used interchangeably. The magnitude of the reported IgG levels cannot be correlated to an endpoint titer. Performed at [address] [place] [address] Unless otherwise specified, testing performed by [facility] [address] [address] 25 Per NCEP ATP III Guidelines: Results lower than 40 mg/dL are suggestive of increased risk for coronary artery disease. Results > or=to 60 mg/dL are considered a negative risk factor. 26 Per NCEP ATP III Guidelines: Normal Population <130 Patients with medical conditions: CHD/DM Optimal: <100 Borderline high: 130-159 High: 160-189 Very high: >189 27 Concerning GFR Guidelines for Americans: Normal function or mild renal disease, if clinically at risk: >/=60 mL/min Moderately decreased: 30-59 Severely decreased: 15-29 Renal failure: <15 28 Concerning GFR Guidelines: Normal function or mild renal disease, if clinically at risk: >/=60 mL/min Moderately decreased: 30-59 Severely decreased: 15-29 Renal failure: <15 Glomerular Filtration Rate (GFR) is estimated based on the MDRD equation, which assumes a steady state for creatinine as recommended by the National Kidney Disease Education Program in conjunction with the National Institutes of Health and the National Kidney Foundation. Clinical conditions in which it may be necessary to measure GFR by using clearance methods include extremes of age and body size, severe malnutrition or obesity, diseases of skeletal muscle, paraplegia or quadriplegia, vegetarian diet, rapidly changing kidney function, and calculation of the dose of potentially toxic drugs that are excreted by the kidneys. 29 Negative 0 - 19 Weak Positive 20 - 30 Moderate to Strong Positive >30 30 Negative 0 - 19 Weak Positive 20 - 30 Moderate to Strong Positive >30 31 Negative 0 - 3 Weak Positive 4 - 10 Positive >10 Tissue Transglutaminase ( tTG) has been identified as the endomysial antigen. Studies have demonstr- ated that endomysial IgA antibodies have over 99% specificity for gluten sensitive enteropathy. 32 Negative 0 - 5 Weak Positive 6 - 9 Positive >9 Performed at: RN - [facility] [address] [id number] Orthotist: Anitha Velasco MD, Phone: [phone] 33 Negative <0.9 Equivocal 0.9 - 1.0 Positive >1.0 34 Negative <0.9 Equivocal 0.9 - 1.0 Positive >1.0 35 Negative <0.9 Equivocal 0.9 - 1.0 Positive >1.0 36 EBV Interpretation Chart Interpretation VCA-IgM EA-IgG VCA-IgG NA-ABS Susceptible - - - - Acute Infection + +or- +or- - Convalescent Phase +or- +or- + + Chronic or Reactivated - + + +or- Old Infection - - +or- + + Antibody Present - Antibody Absent Performed at: [address] [id number] Orthotist: Tito Edge MD, Phone: [phone] 37 Negative <0.9 Equivocal 0.9 - 1.0 Positive >1.0 38 FASTING 39 The sensitivity of Heterophile antibody testing is 80-90%. Anderson Hernandez IgM testing offers higher sensitivity. Performed at: [address] [id number] Orthotist: Tito Edge MD, Phone: [phone] 40 The sensitivity of Heterophile antibody testing is 80-90%. Anderson Hernandez IgM testing offers higher sensitivity. Performed at: [address] [id number] Orthotist: Tito Edge MD, Phone: [phone] Procedures Date Code Description Status 06/13/2018 06198 Measure Blood Oxygen Level Single Determination Completed 03/23/2018 91044 Measure Blood Oxygen Level Single Determination Completed 09/29/2017 05064 Brief Emotional/Behav Assessment W/ Scoring Doc Per Completed Standard Inst 03/31/2017 47428 Screening Hearing Test Completed 03/10/2017 21119 Echography Pelvic Complete Completed 03/10/2017 70738 Echography Abdominal Limited Completed 04/11/2015 00587 X-Ray Hip Complete Two Views Completed 11/19/2013 61431 Electrocardiogram Complete Completed 12/04/2010 16874 Omt 1-2 Body Regions Completed 11/30/2010 28515 Omt 3-4 Body Regions Completed 10/22/2010 50174 Visual Screening Test Completed 10/22/2010 18152 Screening Hearing Test Completed Encounters Type Date Location Provider Dx Diagnosis Office Visit 03/23/2018 Jimena Rivas PA J20.9 Acute bronchitis, 11:30a unspecified R04.0 Epistaxis Z68.30 Body mass index (BMI) 30.0-30.9, adult Office Visit 09/29/2017 9:30a [facility] Jimena Bassett PA F32.2 Major depressv disord, single epsd, sev w/o psych features F41.1 Generalized anxiety disorder Z68.31 Body mass index (BMI) 31.0-31.9, adult Z13.89 Encounter for screening for other disorder Office Visit 08/02/2017 11:30a [facility] Jimena Bassett PA F32.2 Major depressv disord, single epsd, sev w/o psych features F41.1 Generalized anxiety disorder J30.9 Allergic rhinitis, unspecified Z68.30 Body mass index (BMI) 30.0-30.9, adult Office Visit 07/19/2017 10:00a [facility] Jimena Bassett PA F32.2 Major depressv disord, single epsd, sev w/o psych features F41.1 Generalized anxiety disorder Z68.30 Body mass index (BMI) 30.0-30.9, adult Office Visit 07/06/2017 10:30a [facility] Schedule, Nurses Z11.1 Encounter for screening for respiratory tuberculosis Office Visit 06/30/2017 11:30a [facility] Jimena Bassett PA F41.1 Generalized anxiety disorder Z68.30 Body mass index (BMI) 30.0-30.9, adult Office Visit 04/12/2017 10:30a [facility] Jimena Bassett PA J01.90 Acute sinusitis, unspecified Office Visit 03/31/2017 10:00a [facility] Jimena Bassett PA 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 F33.0 Major depressive disorder, recurrent, mild F41.1 Generalized anxiety disorder N83.292 Other ovarian cyst, LEFT side Z11.3 Encntr screen for infections w sexl mode of transmiss Office Visit 02/24/2017 11:30a [facility] Jimena Bassett PA R10.32 LEFT lower quadrant pain R10.31 RIGHT lower quadrant pain R42 Dizziness and giddiness F33.9 Major depressive disorder, recurrent, unspecified F41.9 Anxiety disorder, unspecified Office Visit 01/24/2017 11:30a [facility] Jimena Bassett PA F33.9 Major depressive disorder, recurrent, unspecified F41.9 Anxiety disorder, unspecified Office Visit 12/20/2016 3:00p [facility] Jimena Bassett PA F33.9 Major depressive disorder, recurrent, unspecified R39.15 Urgency of urination Office Visit 09/27/2016 1:45p [facility] Jimena Bassett PA J01.00 Acute maxillary sinusitis, unspecified Office Visit 02/20/2016 11:15a [facility] Altagracia Mccormick MD R19.7 Diarrhea, unspecified Office Visit 11/19/2015 9:30a [facility] Altagracia Mccormick MD R05 Cough K30 Functional dyspepsia Office Visit 08/21/2015 2:00p [facility] Altagracia Mccormick MD Z00.00 Encntr for general adult medical exam w/o abnormal findings N91.1 Secondary amenorrhea R51 Headache F41.1 Generalized anxiety disorder Office Visit 05/22/2015 2:00p [facility] Justin Cheema Z11.1 Encounter for screening for respiratory tuberculosis Office Visit 04/17/2015 4:30p [facility] Altagracia Mccormick MD N83.20 Unspecified ovarian cysts M25.551 Pain in RIGHT hip L20.9 Atopic dermatitis, unspecified Office Visit 04/10/2015 4:00p [facility] Altagracia Mccormick MD F41.1 Generalized anxiety disorder R51 Headache M25.551 Pain in RIGHT hip Office Visit 01/10/2015 1:15p [facility] Altagracia Mccormick MD F41.1 Generalized anxiety disorder R22.2 Localized swelling, mass and lump, trunk R31.9 Hematuria, unspecified Office Visit 12/27/2014 1:00p [facility] Altagracia Mccormick MD R22.2 Localized swelling, mass and lump, trunk F41.1 Generalized anxiety disorder R31.9 Hematuria, unspecified Office Visit 11/19/2014 1:15p [facility] Mirtha Sotelo PA 465.9 URI Upper Respiratory Infections Acute Unspec Sites Office Visit 08/01/2014 10:30a [facility] Altagracia Mccormick MD V70.0 Exam (Adult) General Medical Routine AT Health Care Facility 536.8 Stomach Dyspepsia & Other Spec Disorders Of Function V25.09 Contraceptive Management Other 784.0 Headache 296.21 Depressive Disorder Major Single Episode Mild Plan of Treatment Future Appointment(s):09/13/2018 9:30 am - Jimena Bassett PA at [facility]2018 - Jimena Bassett, ALBANJ45.20 Mild intermittent asthma, uncomplicatedNew Medication:Nebulizer - use as directed. Dx j45.2Albuterol Sulfate (2.5 mg/3ML ) 0.083% - 1 vial via nebulizer every 4-6 hours as needed wheezingComments:Will try adding singulairNebulizer at home to help with asthma exacerbationsCall with questions/concernsFollow up:3 [id number] Body mass index (BMI) 30.0-30.9 , adult
[2018-07-10 16:47] VITALS: BP 110/74
--- NOTE | 2018-07-10 17:14 | UC ---
Respiratory Complaint HPI - HPI Summary HPI Summary: 22 y/o female presents to the urgent care c/o mild sore throat, productive cough w/ clear phlegm, body ahces, chills and HENDERSON since 07/06/2018. Pt reports subjective low grade fever the first day of symptoms. She has moderate PND which triggers a cough at times. She has Hx of asthma, but she denies wheezing or SOB. She has been taking Robitussin PO to alleviate symptoms. Pt deneis fever today, chest pain, dizziness, abdominal pain, N/V/D. - History of Current Complaint Chief Complaint: UCRespiratory Stated Complaint: COUGH,CONGESTION Time Seen by Provider: 07/10/18 17:05 Hx Obtained From: Patient Hx Last Menstrual Period: [id number] Onset/Duration: Gradual Onset, Lasting Days - 4 days, Still Present, Worse Since - yesterday Severity Initially: Mild Severity Currently: Moderate Pain Intensity: 6 - sore throat Pain Scale Used: 0-10 Numeric Character: Cough: Productive, Sputum Description: - yellowish Aggravating Factors: Recumbent Position Alleviating Factors: Nothing Associated Signs And Symptoms: Positive: Fever - first day of symptoms, Chills, URI, Nasal Congestion - yellowish, Sinus Discomfort. Negative: Wheezing, Dizziness - Risk Factors Pulmonary Embolism Risk Factors: Negative Cardiac Risk Factors: Negative Pseudomonas Risk Factors: Negative Tuberculosis Risk Factors: Negative - Allergies/Home Medications Allergies/Adverse Reactions: Allergies Allergy/AdvReac Type Severity Reaction Status Date / Time cefuroxime Allergy Nausea And Verified 07/10/18 16:47 Vomiting clavulanic acid Allergy Nausea And Verified 07/10/18 16:47 Vomiting codeine Allergy Nausea And Verified 07/10/18 16:47 Vomiting doxycycline Allergy Nausea And Verified 07/10/18 16:47 Vomiting Home Medications: Home Medications D-Methorphan/PE/Acetaminophen [Vicks Dayquil Liquicaps] 1 cap PO Q6H 07/10/18 [ History Confirmed 07/10/18] Dm/Acetaminophen/Doxylamine [Vicks Nyquil Liquicaps] 1 cap PO Q6H 07/10/18 [ History Confirmed 07/10/18] PMH/Surg Hx/FS Hx/Imm Hx Previously Healthy: Yes Respiratory History: Asthma Other History Of: Negative For: HIV, Hepatitis B, Hepatitis C, Anticoagulant Therapy - Surgical History Surgical History: Yes Surgery Procedure, Year, and Place: T&A. L foot surgery. tubes in ears - Family History Known Family History: Positive: Cardiac Disease, Hypertension, Diabetes, Other - Mother has IBS Negative: Renal Disease Family History: Mother has IBS - Social History Occupation: Employed Full-time Lives: With Family Alcohol Use: Weekly Alcohol Amount: 3-4 weekends Substance Use Type: None Smoking Status (MU): Never Smoked Tobacco - Immunization History Most Recent Influenza Vaccination: Not this Season Vaccination Up to Date: Yes Review of Systems All Other Systems Reviewed And Are Negative: Yes Constitutional: Positive: Fever - first day of symptoms, Other - body aches Skin: Positive: Negative Eyes: Positive: Negative ENT: Positive: Sore Throat, Nasal Discharge, Sinus Congestion, Sinus Pain/ Tenderness, Other - moderate PND yellowish Respiratory: Positive: Cough - productive w/ yellowish phleg at times Cardiovascular: Positive: Negative Gastrointestinal: Positive: Negative Genitourinary: Positive: Negative Motor: Positive: Negative Neurovascular: Positive: Negative Musculoskeletal: Positive: Myalgia Neurological: Positive: Negative Psychological: Positive: Negative Is Patient Immunocompromised?: No Physical Exam - Summary Physical Exam Summary: VITAL SIGNS: Reviewed. GENERAL: Patient is a well developed and nourished female who is sitting comfortable in the examining table. Patient is not in any acute respiratory distress. HEAD AND FACE: No signs of trauma. No ecchymosis, hematomas or skull depressions. No sinus tenderness. EYES: PERRLA, EOMI x 2, No injected conjunctiva, no nystagmus. No photophobia. EARS: Hearing grossly intact. Ear canals and tympanic membranes are within normal limits. Nose: edematous and erythematous nasal mucosa w/ clear nasal discharge. MOUTH: Positive no erythema, no tonsillar enlargement. Uvula in midline. NECK: Supple, trachea is midline, Positive anterior cervical lymphadenopathy, no JVD, no carotid bruit, no c-spine tenderness, neck with full ROM. No meningeal signs, no Kernig's or brudzinskis signs. CHEST: Symmetric, no tenderness at palpation LUNGS: Clear to auscultation bilaterally. No wheezing or crackles. CVS: Regular rate and rhythm, S1 and S2 present, no murmurs or gallops appreciated. ABDOMEN: Soft, non-tender. No signs of distention. No rebound no guarding, and no masses palpated. Bowel sounds are normal. EXTREMITIES: FROM in all major joints, no edema, no cyanosis or clubbing. NEURO: Alert and oriented x 3. No acute neurological deficits. Speech is normal and follows commands. SKIN: Dry and warm Triage Information Reviewed: Yes Vital Signs: Initial Vital Signs Temp 97.2 F 07/10/18 16:43 Pulse 85 07/10/18 16:43 Resp 16 07/10/18 16:43 BP 110/74 07/10/18 16:43 Pulse Ox 100 07/10/18 16:43 Respiratory Course/Dx - Course Course Of Treatment: 22 y/o female presents to the urgent care c/o mild sore throat, productive cough w/ clear phlegm, body ahces, chills and HENDERSON since 07/06/2018. Pt reports subjective low grade fever the first day of symptoms. She has moderate PND which triggers a cough at times. She has Hx of asthma, but she denies wheezing or SOB. She has been taking Robitussin PO to alleviate symptoms. Pt denies fever today, chest pain, dizziness, abdominal pain, N/V/D. Pt with an upper respiratory infection of examination. B/L lungs w/ normal breath sounds. Rapid strep: negative, Rapid Influenza A&B: negative. Pt advised to increase fluid intake, rest and eat well, advised to take Ibuprofen, and continue w/ Robitussin to alleviate symptoms. Pt understood and agreed with D/C instructions. - Differential Dx/Diagnosis Differential Diagnosis/HQI/PQRI: Asthma, Bronchitis, Lower Resp Infection, Sinusitis Provider Diagnosis: Upper respiratory infection Discharge - Sign-Out/Discharge Documenting (check all that apply): Patient Departure - D/C home All imaging exams completed and their final reports reviewed: No Studies - Discharge Plan Condition: Stable Disposition: HOME Patient Education Materials: Upper Respiratory Infection (ED) Forms: *Work Release Referrals: Jimena Bassett PA [Primary Care Provider] - 3 Days Additional Instructions: 1-Please take ibuprofen PO q6-8hrs prn as instructed after meals to alleviate pain and swelling. Increase fluid intake, eat well, rest and avoid strenuous exercise 2- Rapid strep and Rapid influenza A&B: negative. Please use the Flonase nasal spray and saline drops you have at home to clear sinuses. 3- Take Robitussin PO and use your Albuterol inhaler to alleviate cough. 4-If symptoms do not improve or worsen please return to the urgent care or f/u with your PCP in 3 days for further evaluation and treatment. - Billing Disposition and Condition Condition: STABLE Disposition: Home
[2018-07-10 17:55] LABS: Influenza A Molecular NEGATIVE (Negative); Influenza B Molecular NEGATIVE (Negative)
== END 2018-07-10 18:10 | disposition home or self-care (01) ==
LOC: UCEAST 16:19
DX: J06.9 Acute upper respiratory infection, unspecified (principal); J45.909 Unspecified asthma, uncomplicated; Z88.1 Allergy status to other antibiotic agents; Z88.5 Allergy status to narcotic agent
CPT/HCPCS: 87651; 99211; G0463

== ENCOUNTER 2018-08-02 11:31 | Emergency (ER) | payer OTHER ==
[2018-08-02 11:44] VITALS: BP 105/67
--- NOTE | 2018-08-02 12:23 | UC ---
Abdominal Pain Female HPI - HPI Summary HPI Summary: PATIENT HAS HAD A FEW WEEKS OF MILD CONSTANT DULL RIGHT LOWER QUADRANT DISCOMFORT. TODAY PAIN BECAME SHARP. SHE HAS SOME ASSOCIATED NAUSEA, DECREASED APPETITE AND DIZZINESS. NO FEVER THAT SHE IS AWARE OF. STATES SHE HAS A HISTORY OF OVARIAN CYSTS. ALSO REPORTS HAVING A FEW MONTHS OF MILD INTERMITTENT DYSURIA. STATES ZERO CHANCE OF . - History of Current Complaint Chief Complaint: UCAbdominalPain Stated Complaint: LOWER ABD PAIN Time Seen by Provider: 08/02/18 12:22 Hx Obtained From: Patient Hx Last Menstrual Period: 07/18/18 Onset/Duration: Gradual Onset, Lasting Weeks, Still Present Timing: Constant Severity Initially: Moderate Severity Currently: Moderate Pain Intensity: 8 Pain Scale Used: 0-10 Numeric Location: Discrete At: RLQ, Discrete At: LLQ Radiates: No Character: Dull, Sharp Aggravating Factor(s): Nothing Alleviating Factor(s): Nothing Associated Signs and Symptoms: Positive: Dizzy, Urinary Symptoms, Decreased Appetite, Nausea. Negative: Fever, Back Pain Allergies/Adverse Reactions: Allergies Allergy/AdvReac Type Severity Reaction Status Date / Time cefuroxime Allergy Nausea And Verified 08/02/18 11:45 Vomiting clavulanic acid Allergy Nausea And Verified 08/02/18 11:45 Vomiting codeine Allergy Nausea And Verified 08/02/18 11:45 Vomiting doxycycline Allergy Nausea And Verified 08/02/18 11:45 Vomiting Home Medications: Home Medications traZODone TAB* [Desyrel TAB*] 50 mg PO BEDTIME 08/02/18 [History Confirmed 08/02] PMH/Surg Hx/FS Hx/Imm Hx Respiratory History: Asthma Psychological History: Depression Other History Of: Negative For: HIV, Hepatitis B, Hepatitis C, Anticoagulant Therapy - Surgical History Surgical History: Yes Surgery Procedure, Year, and Place: T&A. L foot surgery. tubes in ears - Family History Known Family History: Positive: Cardiac Disease, Hypertension, Diabetes, Other - Mother has IBS Negative: Renal Disease Family History: Mother has IBS - Social History Alcohol Use: Occasionally Alcohol Amount: 3-4 weekends Substance Use Type: None Smoking Status (MU): Never Smoked Tobacco - Immunization History Most Recent Influenza Vaccination: Not this Season Vaccination Up to Date: Yes Review of Systems All Other Systems Reviewed And Are Negative: Yes Constitutional: Positive: Negative Respiratory: Positive: Negative Cardiovascular: Positive: Negative Gastrointestinal: Positive: Abdominal Pain, Nausea Genitourinary: Positive: Dysuria. Negative: Frequency, Urgency Physical Exam Triage Information Reviewed: Yes Appearance: Well-Appearing, No Pain Distress, Well-Nourished Vital Signs: Initial Vital Signs Temp 99.7 F 08/02/18 11:41 Pulse 81 08/02/18 11:41 Resp 18 08/02/18 11:41 BP 105/67 08/02/18 11:41 Pulse Ox 100 08/02/18 11:41 Laboratory Tests 08/02/18 12:38 POC Urine Color Yellow POC Urine Clarity Clear POC Urine pH 5.5 POC Ur Specif [place] 1.025 POC Urine Protein Negative POC Ur Glucose (UA) Negative POC Urine Ketones Negative POC Urine Blood 2+ A POC Urine Nitrite Negative POC Urine Bilirubin Negative POC Urine Urobilinogen 0.2 POC U Leukocyte Esteras Trace A Vital Signs Reviewed: Yes Eyes: Positive: Conjunctiva Clear ENT: Positive: Hearing grossly normal Neck: Positive: Supple Respiratory Exam: Normal Cardiovascular Exam: Normal Abdomen Description: Positive: Soft, Other: - TTP RLQ, LLQ. NO REBOUND OR RIGIDITY. NEG OBTURATOR. NEG PSOAS.. Negative: CVA Tenderness (R), CVA Tenderness (L), Distended, Guarding Bowel Sounds: Positive: Present Musculoskeletal: Positive: No Edema Neurological: Positive: Alert Psychological: Positive: Age Appropriate Behavior Skin: Negative: Rashes Abd Pain Female Course/Dx - Course Course Of Treatment: PATIENT WITH EXQUISITE TENDERNESS TO PALPATION IN HER RIGHT LOWER QUADRANT AND LEFT LOWER QUADRANT. URINE TEST WITH TRACE BACTERIA AND 2+ BLOOD. SHE DOES ADMIT SHE HAS BEEN WORKING OUT A LOT RECENTLY WHICH MIGHT ACCOUNT FOR HER MICROSCOPIC HEMATURIA. I'M CONCERNED FOR POSSIBLE APPENDICITIS GIVEN HER RLQ PAIN, NAUSEA, DECREASED APPETITE AND ELEVATED TEMPERATURE. HER DISCOMFORT COULD ALSO BE DUE TO AN OVARIAN CYST ANS SHE HAS HAD A HISTORY OF PAINFUL OVARIAN CYSTS IN THE PAST. ADVISED PATIENT TO BE NPO AND SHE WILL GO TO THE ER DIRECTLY FOR FURTHER EVALUATION. PT OFFERED TRANSPORT TO THE ED BY AMBULANCE BUT DECLINES. ADVISED THAT BY NOT TRAVELING IN A MONITORED SETTING SHE COULD BE RISKING WORSENING OF HER CONDITION THAT COULD POSE A THREAT TO HER LIFE, HEALTH AND MEDICAL SAFETY. SHE VERBALIZES UNDERSTANDING AND CONTINUES TO DECLINE AMBULANCE TRANSFER. - Differential Dx/Diagnosis Provider Diagnosis: RLQ abdominal pain, Hematuria Discharge - Sign-Out/Discharge Documenting (check all that apply): Patient Departure All imaging exams completed and their final reports reviewed: No Studies - Discharge Plan Condition: Stable Disposition: TRANS HIGHER LVL OF CARE FAC Patient Education Materials: Hematuria (ED), Abdominal Pain (ED) Referrals: Jimena Bassett PA [Primary Care Provider] - If Needed Additional Instructions: [place] [facility] [place]URTHER [place]AL[place]. YOU HAVE DECLINED TRANSFER TO THE ED BY AMBULANCE. BE ADVISED THAT BY NOT TRAVELING IN A MONITORED SETTING YOU COULD BE RISKING WORSENING OF YOUR CONDITION THAT COULD POSE A THREAT TO YOUR LIFE, HEALTH AND MEDICAL SAFETY. BE SURE TO RECHECK YOUR URINE TEST IN A COUPLE OF WEEKS TO MAKE SURE THE BLOOD HAS CLEARED. IF IT HAS NOT CLEARED YOU SHOULD FOLLOW-UP WITH UROLOGY. IT MAY SIMPLY BE DUE TO YOUR RECENT EXERCISE REGIMEN BUT NEEDS TO BE RE-EVALUATED. - Billing Disposition and Condition Condition: STABLE Disposition: Trans Higher Lvl of Care Fac
== END 2018-08-02 13:06 | disposition short-term general hospital (02) ==
LOC: UCEAST 11:31
DX: R10.31 Right lower quadrant pain (principal); R10.32 Left lower quadrant pain; R31.29 Other microscopic hematuria; R11.0 Nausea; R42 Dizziness and giddiness; R30.0 Dysuria; R50.9 Fever, unspecified; Z88.1 Allergy status to other antibiotic agents; Z88.5 Allergy status to narcotic agent
CPT/HCPCS: 81003; 87086; 99212; G0463

== ENCOUNTER 2018-08-02 13:23 | Emergency (ER) | payer OTHER ==
--- OUTSIDE RECORDS SUMMARY | 2018-08-02 13:35 | XMS REPORT | Continuity of Care Document ---
:1995 External Reference #:[id number] Author Name Katey Webber MD Address [address] [place] [address] Care Team Providers Name Role Phone Jimena Bassett PA Care Team Information Mold Blower Unavailable Payers Date Identification Numbers Payment Provider Subscriber Policy Number: [id number] [employer] Deanna West PayID: [id number] [address] [place] [address] Advance Directives Description No Information Available Problems Active Problems Provider Date No current problems or disability Onset: 11/24/2010 Family History Date Family Member(s) Observation Comments Father Good Health Father due to Cancer, Brain () Mother Good Health Paternal Grandfather Retinitis Pigmentosis. 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 1units J45.20 Daquan Vitale 06/13/2018 Device Dx j45.2 DO Albuterol Sulfate 1 vial via 180ml J45.20 Daquan Vitale, 06/13/2018 nebulizer every DO (2.5mg/3ML) 0.083% 4-6 hours as Nebulizer needed wheezing Montelukast Sodium 1 by mouth every 90tabs J20.9 Daquan Vitale, 2018 day DO 10mg Tablets J30.9 J01.00 Ventolin HFA 2 puffs every 4-6 18units J20.9 Daquan Vitale, DO 03/23/2018 108(90Base) hours as needed for mcg/Act Aerosol cough, wheezing, shortness of breath J45.20 Trazodone HCL 1 by mouth every Daquan Vitale, 07/19/2017 50mg Tablets night at bedtime DO Hydrocortisone apply to affected 28.350gm L20.9 Altagracia Mccormick, 04/17/2015 1% Cream areas twice a day MD until rash resolves Ibuprofen 1 by mouth three 60tabs M25.551 Altagracia Mccormick, 04/17/2015 600mg Tablets times a day x 1-2 MD weeks then as needed History Medications Azithromycin 2 tablets by 6tabs J20.9 Daquan Vitale, 03/23/2018 - 250mg mouth on day 1 DO 03/28/2018 Tablets then 1 tablet on days 2-5 Cetirizine HCL 1 by mouth every 90tabs J30.9 Daquan Vitale, 08/02/2017 - 10mg day DO 03/23/2018 Tablets Sertraline HCL 1 by mouth every 90tabs Daquan Vitale, 07/19/2017 - 50mg day DO 08/02/2017 Tablets Paroxetine HCL 1 tablet by 30tabs F41.1 Daquan Vitale, 06/30/2017 - 10mg mouth every DO 07/19/2017 Tablets morning Doxycycline Hyclate 1 tablet by 20caps Daquan Vitale, 04/12/2017 - mouth twice a DO 04/22/2017 100mg Capsules day x 10 days Ondansetron 1 tablet every 8 15tabs Daquan Vitale, 04/12/2017 - 4mg Tablets hours as needed DO 03/23/2018 Dispers Drospirenone-Ethinyl 1 tablet by 28tabs Z01.419 Daquan Vitale, 2017 - Estradiol mouth daily DO 07/19/2017 3-0.02mg Tablets Zithromax Z-Gera 2 tabs today Unknown 03/29/2017 - 250mg then one tab x 4 04/02/2017 Tablets days Prednisone taper as Unknown 03/27/2017 - 10mg (48) directed over 12 04/12/2017 TBPK days Meclizine HCL 1 by mouth three 30tabs R42 Daquan Vitale, 02/24/2017 - 25mg times daily as DO 03/23/2018 Tablets needed for dizziness Paroxetine HCL 1 by mouth every 30tabs F33.9 Daquan Vitale, 01/24/2017 - 20mg morning DO 06/30/2017 Tablets Hydroxyzine HCL 1 by mouth up to 90tabs F33.9 Daquan Vitale, 01/24/2017 - 25mg three times DO 09/29/2017 Tablets daily for anxiety Nitrofurantoin 1 by mouth twice 14caps R39.15 Daquan Vitale, 12/20/2016 - Monohyd Macro a day x 7 days DO 01/24/2017 100mg Capsules Paroxetine HCL 1 tablet by 30tabs F33.9 Daquan Vitale, 12/20/2016 - 10mg mouth every DO 01/24/2017 Tablets morning Azithromycin 2 tablets by 6tabs J01.00 Serjio, 09/27/2016 - 250mg mouth on day 1 [place] Hess 12/20/2016 Tablets then 1 tablet on days 2-5 Azithromycin 2 by mouth 6tabs R05 Altagracia Mccormick, 11/19/2015 - 250mg today, then 1 by 09/27/2016 Tablets mouth daily x 4 more days Escitalopram Oxalate 1 by mouth every 30tabs F41.1 Altagracia Mccormick, 2014 - day dx ; anxiety 08/21/2015 5mg Tablets Fluticasone 1 spray each 16units 465.9 Daquan Vitale, 11/19/2014 - Propionate nostril twice a DO 11/29/2014 50mcg/Act day Suspension Ortho Evra 1 patch to skin 36units Altagracia Mccormick, 07/30/2013 - weekly x 3 12/20/2016 150-35mcg/24HR weeks, then off Patches Weekly 1 week. Sertraline HCL 1 by mouth every Unknown - 50mg day 03/23/2018 Tablets Medications Administered in Office Medication SIG Qnty Indications Ordering Provider Date PPD Injection Schedule, Nurses 07/04/2017 PPD Injection Schedule, Nurses 05/20/2015 Immunizations CPT Code Status Date Vaccine Reaction Lot # 62436 Given 12/01/2011 Afluria Or Fluvirin Flu Vac VIS DATE 09/13/11 Intramuscular 41476 Given 01/22/2011 Influenza Intranasal Vaccine, Live VIS DATE 10/06/10 Virus 63450 Given 06/16/2009 Tdap (Adacel) Ages 7 And Above Only 48273 Given 11/14/2007 Varicella (Chicken Pox) OTHER PROVIDER Immunization 14938 Given 11/14/2007 HPV Vaccine (Gardasil) 3 Dose OTHER PROVIDER Schedule 92876 Given 11/07/2007 Tdap (Adacel) Ages 7 And Above Only OTHER PROVIDER 00778 Given 12/22/2006 HPV Vaccine (Gardasil) 3 Dose OTHER PROVIDER Schedule 02293 Given 10/27/2006 HPV Vaccine (Gardasil) 3 Dose OTHER PROVIDER Schedule 20812 Given 01/17/2001 Pneumococcal (Prevnar 7)Child Under DR LOFTON Five 06524 Given 10/22/1999 IPV / Poliomyelitis Immunization DR LOFTON 13790 Given 10/22/1999 DTaP Immunization 7 Yrs & Younger DR LOFTON 85489 Given 12/16/[address] LOFTON 95699 Given 05/03/1996 DTP & Hib Immunization DR LOFTON 34043 Given 01/26/1996 Varicella (Chicken Pox) DR LOFTON Immunization 25434 Given 01/26/[address] LOFTON 11228 Given 07/11/1995 Hepatitis B Vac Ped/Adolescent 3 DR LOFTON Dose Schedule 25599 Given 04/11/1995 DTP & Hib Immunization DR LOFTON 21850 Given 04/11/[address] LOFTON 89001 Given 02/08/1995 Hepatitis B Vac Ped/Adolescent 3 DR LOFTON Dose Schedule 05264 Given 02/08/1995 DTP & Hib Immunization DR LOFTON 45497 Given 02/08/[address] LOFTON 19420 Given 1994 IPV / Poliomyelitis Immunization DR LOFTON 26456 Given 1994 Hepatitis B Vac Ped/Adolescent 3 DR LOFTON Dose Schedule 92412 Given 1994 DTP & Hib Immunization DR LOFTON 00296 Refused 07/11/2018 Influenza Vac, Quadrivalent, Split, 0.5mL Dosage, Im Use Vital Signs Date Vital Result Comment 07/11/2018 4:46pm Body Temperature 99.6 F Weight 170.00 lb Heart Rate 80 /min BP Systolic 112 mmHg BP Diastolic 70 mmHg Respiratory Rate 18 /min Height 63 inches 5'3" O2 % BldC Oximetry 99 % BMI (Body Mass Index) 30.1 kg/m2 07/11/2018 4:43pm Weight 169.00 lb 06/13/2018 10:36am Weight 173.00 lb Heart Rate [...] Rate 14 /min Height 63 inches 5'3" 03/31/17 BMI (Body Mass Index) 29.4 kg/m2 Last Menstrual Period 3533052 02/24/2017 11:34am Weight 161.00 lb Heart Rate 78 /min BP Systolic 120 mmHg BP Diastolic 80 mmHg Respiratory Rate 16 /min Height 63 inches 5'3" 09/27 BMI (Body Mass Index) 28.5 kg/m2 Last Menstrual Period 2541743 01/24/2017 11:47am Weight 160.00 lb Heart Rate [...] Rate 80 /min BP Systolic 110 mmHg Bomkc752/64 Wqy893/62 Zohsz509/64 BP Diastolic 60 mmHg Flzmh184/64 Bag726/62 Mlsdw641/64 Respiratory Rate 16 /min 2009 2:02pm Body [...] Test Result H/L Range Note Laboratory test [facility] HCG,Serum NEGATIVE (Negative) 1 finding 8 (315)- - (Qualitative) LDL Cholesterol [facility] Cholesterol 136 mg/ dL <200 2 Profile 8 (315)- - Triglycerides 94 mg/dL <150 3 HDL Cholesterol 47 mg/dL >40 4 LDL-Cholesterol 70 mg/dL < 100 5 Laboratory test 07/08/2017 [facility] Treponema Negative Negative 6 finding (315)- - Antibody [place] Laboratory test 03/31/2017 [place] Pap Smear Thin [...] % (35.0-75.0) Lymph % 28.8 % (16.0-52.0) [place] % 6.0 % (0.0-8.0) Eos % 1.5 % (0.0-5.0) Baso % 0.7 % (0.0-4.0) Neut # 5.0 10*3/uL (1.8-7.7) Lymph # 2.3 10*3/uL (1.2-4.8) [place] # 0.5 10*3/uL (0.0-0.8) Eos # 0.1 10*3/uL (0.0-0.5) Baso # 0.1 10*3/uL (0.0-0.2) 10 Laboratory test 12/20/2016 [place] Urine Culture Microbiology res 11 finding <SEE NOTE> CBS W/Automated 04/01/2016 [facility] White Blood 7.4 K/ uL [...] 40.4-72.8 Lymph % 30.2 % N 20.0-42.0 [place] % 5.9 % N 4.3-13.2 Eo% 1.6 % N 0.0-6.6 Bas% 0.3 % N 0.0-1.1 Neut# 4.60 K/uL N 1.8-7.0 Lymph # 2.24 K/uL N 1.0-4.0 [place] # 0.44 K/uL N 0.3-0.9 Eos # 0.12 K/uL N 0.0-0.5 Baso # 0.02 K/uL N 0.0-0.1 Comprehensive Metabolic 04/01/2016 [facility] Glucose 83 mg/dL N 74-106 [...] U/L N 45-117 Ova & Parasite 03/30/2016 [facility] Cryptosporidium NEGATIVE FOR 15, 16 [...] Igg 2 [arb'U] (<20) 24 Lipid 08/01/2014 [place] Cholesterol 176 mg/dL 50-199 Triglycerides 124 mg/dL [...] Education Program (NCEP) 6 Performed at: - [address] [id number] Automatic Serging Machine Operator: Saurabh Mckeon MD, Phone: [phone] [employer]. [address] [place] [address] CYTOLOGY REPORT Source of Specimen(s): Thin Prep [...] Z01.419 Unless otherwise specified, testing performed by [email or web address] [address] [place] [address] 8 INTERPRETATION: LESS THAN 6 NEGATIVE 6 - 10 BORDERLINE (SUGGEST REPEAT IN 48 HOURS) APPROX HCG RANGE WEEKS POST LMP 11 - 130 3 - 4 WEEKS 75 - 2600 4 - 5 WEEKS 850 - 48282 5 - 6 WEEKS 4000 - 065523 6 - 7 WEEKS 34309 - 195968 7 - 12 WEEKS 64287 - 764814 12 - 16 WEEKS 1400 - 35533 16 - 29 WEEKS 940 - 09976 29 - 41 WEEKS Unless otherwise specified, testing performed by [email or web address] [address] [place] [address] 23645 9 Unless otherwise specified, testing performed by [email or web address] [address] [place] [address] 55975 10 Unless otherwise specified, testing performed by [email or web address] [address] [place] [address] 30395 11 Microbiology results SOURCE Random urine COLONY [...] The following result was obtained with the [employer]ANTA Lite Gliadin IgA II. Results obtained with other manufacturers' assay methods may not be used interchangeably. The magnitude of the reported IgA level cannot be correlated to an endpoint titer. 22 INTERPRETATION OF RESULTS: < 20 UNITS NEGATIVE 20-30 UNITS WEAK POSITIVE > 30 UNITS MODERATE TO STRONG POSITIVE The following result was obtained with the [employer] QUANT[employer] Lite Gliadin IgG II. Results obtained with other manufacturers' assay methods may not be used interchangeably. The magnitude of the reported IgG levels cannot be correlated to an endpoint titer. 23 INTERPRETATION OF RESULTS: < 20 UNITS NEGATIVE 20-30 UNITS WEAK POSITIVE > 30 UNITS MODERATE TO STRONG POSITIVE The following result was obtained with the [employer] QU[employer] Lite h-tTG IgA BEAU. Results obtained with other manufacturers' assay methods may not be used interchangeably. The magnitude of the reported IgA level cannot be correlated to an endpoint titer. Performed at [address] [place] [address] 24 INTERPRETATION OF RESULTS: < 20 UNITS NEGATIVE 20-30 UNITS WEAK POSITIVE > 30 UNITS MODERATE TO STRONG POSITIVE The following result was obtained with the [employer] QU[employer] L[employer] h-tTG IgG BEAU. Results obtained with other manufacturers' assay methods may not be used interchangeably. The magnitude of the reported IgG levels cannot be correlated to an endpoint titer. Performed at [address] [place] [address] Unless otherwise specified, testing performed by [facility] [address] [address] 25 Per NCEP ATP III Guidelines: Results [...] - 9 Positive >9 Performed at: RN [address] [id number] Automatic Serging Machine Operator: Anitha Velasco MD, Phone: [phone] Negative <0.9 Equivocal 0.9 - 1.0 [...] Antibody Present - Antibody Absent Performed at: [address] [id number] Automatic Serging Machine Operator: Tito Edge MD, Phone: [phone] 37 Negative <0.9 Equivocal 0.9 - 1.0 Positive >1.0 38 FASTING 39 The sensitivity of Heterophile antibody testing is 80-90%. Anderson Hernandez IgM testing offers higher sensitivity. Performed at: [address] [id number] Automatic Serging Machine Operator: Tito Edge MD, Phone: [phone] 40 The sensitivity of Heterophile antibody testing is 80-90%. Anderson Hernandez IgM testing offers higher sensitivity. Performed at: [address] [id number] Automatic Serging Machine Operator: Tito Edge MD, Phone: [phone] Procedures Date Code Description Status 07/11/2018 94287 Measure Blood Oxygen Level Single Determination Completed 06/13/2018 57832 Measure Blood Oxygen Level Single Determination Completed 03/23/2018 03875 Measure Blood Oxygen Level Single Determination Completed 09/29/2017 19192 Brief Emotional/Behav Assessment W/ Scoring Doc Per Completed Standard Inst 03/31/2017 84985 Screening Hearing Test Completed 03/10/2017 35158 Echography Pelvic Complete Completed 03/10/2017 73760 Echography Abdominal Limited Completed 04/11/2015 49118 X-Ray Hip Complete Two Views Completed 11/19/2013 55007 Electrocardiogram Complete Completed 12/04/2010 35833 Omt 1-2 Body Regions Completed 11/30/2010 14192 Omt 3-4 Body Regions Completed 10/22/2010 32598 Visual Screening Test Completed 10/22/2010 63319 Screening Hearing Test Completed Encounters Type Date Location Provider Dx Diagnosis Office Visit 06/13/2018 [facility] Jimena Bassett, J45.20 Mild intermittent 10:30a [place] asthma, uncomplicated Z68.30 Body mass index (BMI) 30.0-30.9, adult Office Visit 03/23/2018 11:30a Jimena Rivas PA J20.9 Acute bronchitis, unspecified R04.0 Epistaxis Z68.30 Body mass index (BMI) 30.0-30.9, adult Office Visit 09/29/2017 9:30a Jimena Rivas PA F32.2 Major depressv disord, single epsd, sev w/o psych features F41.1 Generalized anxiety disorder Z68.31 Body mass index (BMI) 31.0-31.9, adult Z13.89 Encounter for screening for other disorder Office Visit 08/02/2017 11:30a Jimena Rivas PA F32.2 Major depressv disord, single epsd, sev w/o psych features F41.1 Generalized anxiety disorder J30.9 Allergic rhinitis, unspecified Z68.30 Body mass index (BMI) 30.0-30.9, adult Office Visit 07/19/2017 10:00a Jimena Rivas PA F32.2 Major depressv disord, single epsd, sev w/o psych features F41.1 Generalized anxiety disorder Z68.30 Body mass index (BMI) 30.0-30.9, adult Office Visit 07/06/2017 10:30a [facility] Schedule, Nurses Z11.1 Encounter for screening for respiratory tuberculosis Office Visit 06/30/2017 11:30a Jimena Rivas PA F41.1 Generalized anxiety disorder Z68.30 Body mass index (BMI) 30.0-30.9, adult Office Visit 04/12/2017 10:30a Jimena Rivas PA J01.90 Acute sinusitis, unspecified Office Visit 03/31/2017 10:00a Jimena Rivas PA Z01.419 Encntr for transportation attendant exam (general) (routine) w/o abn findings F33.0 Major depressive disorder, recurrent, mild F41.1 Generalized anxiety disorder N83.292 Other ovarian cyst, LEFT side Z11.3 Encntr screen for infections w sexl mode of transmiss Office Visit 02/24/2017 11:30a [facility] Jimena Bassett PA R10.32 LEFT lower quadrant pain R10.31 RIGHT lower quadrant pain R42 Dizziness and giddiness F33.9 Major depressive disorder, recurrent, unspecified F41.9 Anxiety disorder, unspecified Office Visit 01/24/2017 11:30a [facility] Jimena Bassett PA F33.9 Major depressive disorder, recurrent, unspecified F41.9 Anxiety disorder, unspecified Office Visit 12/20/2016 3:00p [facility] Jimena Bassett PA F33.9 Major depressive disorder, recurrent, unspecified R39.15 Urgency of urination Office Visit 09/27/2016 1:45p [facility] Jimena Bassett PA J01.00 Acute maxillary sinusitis, unspecified Office Visit 02/20/2016 11:15a [facility] Altagracia Mccormick MD R19.7 Diarrhea, unspecified Office Visit 11/19/2015 9:30a [facility] Altagracia Mccormick MD R05 Cough K30 Functional dyspepsia Office Visit 08/21/2015 2:00p [facility] Altagracia Mccormick MD Z00.00 Encntr for general adult medical exam w/o abnormal findings N91.1 Secondary amenorrhea R51 Headache F41.1 Generalized anxiety disorder Office Visit 05/22/2015 2:00p [facility] Justin Cheema Z11.1 Encounter for screening for respiratory tuberculosis Office Visit 04/17/2015 4:30p [facility] Altagracia Mccormick MD N83.20 Unspecified ovarian cysts M25.551 Pain in RIGHT hip L20.9 Atopic dermatitis, unspecified Office Visit 04/10/2015 4:00p [facility] Altagracia Mccormick MD F41.1 Generalized anxiety disorder R51 Headache M25.551 Pain in RIGHT hip Office Visit 01/10/2015 1:15p [facility] Altagracia Mccormick MD F41.1 Generalized anxiety disorder R22.2 Localized swelling, mass and lump, trunk R31.9 Hematuria, unspecified Office Visit 12/27/2014 1:00p [facility] Altagracia Mccormick MD R22.2 Localized swelling, mass and lump, trunk F41.1 Generalized anxiety disorder R31.9 Hematuria, unspecified Office Visit 11/19/2014 1:15p [facility] Mirtha Sotelo PA 465.9 URI Upper Respiratory Infections Acute Unspec Sites Office Visit 08/01/2014 10:30a [facility] Altagracia Mccormick MD V70.0 Exam (Adult) General Medical Routine AT Health Care Facility 536.8 Stomach Dyspepsia & Other Spec Disorders Of Function V25.09 Contraceptive Management Other 784.0 Headache 296.21 Depressive Disorder Major Single Episode Mild Plan of Treatment Future Appointment(s):09/13/2018 9:30 am - Jimena Bassett PA at [facility]2018 - Katey Webber MDJ06.9 Acute upper respiratory infection, unspecifiedComments:URI--Explained most likely cause is a virus that won't respond to antibiotics. Can expect cough to worsen before it improves, and whole illness course may last up to 3-4 weeks. Please call for increased Shortness of breath, temp >=101, increased cough that's productive of colored sputum, chest pain, or any other concerns that would suggest bacterial chest infection. If you have increasing face pain with nasal discharge that is colored or bloody, we need to consider sinus infection. Please call for any concerning symptoms. Try using a vaporizer at night to help with mouth dryness and sore throat. May try OTC meds to help relieve symptoms such as Robitussin May use saline rinses twice daily to help as well.Follow up:followup as ouqvdomP26.20 Mild intermittent asthma, uncomplicatedComments:watch for asthma to flare please take 2 inhalations of the ventolin 3-4 times daily while ill may helprecommend [id number] once feeling fvrnaiK50.9 Obesity, unspecifiedComments:continue to work on diet, exercise, weight lossZ68.30 Body mass index (BMI) 30.0-30.9, adultComments:recommend reduced calorie intake, healthy eating and regular exercise for weight reduction
[2018-08-02 14:12] LABS: ABS Eosinophils 0.1 10^3/ul (0-0.6); ABS Lymphocytes 2.2 10^3/ul (1.0-4.8); ABS Monocytes 0.4 10^3/ul (0-0.8); Hematocrit 41 % (35-47); Hemoglobin 13.7 g/dL (12.0-16.0); Lymphocyte % 32.7 %; Mean Corpuscular HGB Conc 34 g/dL (31-36); Mean Corpuscular Hemoglobin 28 pg (27-31); Mean Corpuscular Volume 84 fL (80-97); Mean Platelet Volume 7.6 fL (7.4-10.4); Platelet Count 307 10^3/uL (150-450); Red Blood Count 4.85 10^6 /uL (3.70-4.87); Red Cell Distribution Width 14 % (10.5-15); White Blood Count 6.9 10^3/uL (3.5-10.8)
[2018-08-02 14:36] LABS: HCG Pregnancy < 0.60 mIU/mL
[2018-08-02 14:44] LABS: ALT 9 U/L (7-52); AST 16 U/L (13-39); Albumin 4.6 g/dL (3.2-5.2); Albumin/Globulin Ratio 1.6 (1-3); Alkaline Phosphatase 65 U/L (34-104); Anion Gap 7 mmol/L (2-11); BUN/Creatinine Ratio 11.4 (8-20); Blood Urea Nitrogen 9 mg/dL (6-24); C Reactive Protein 2.08 mg/L (<8.01); CO2 Carbon Dioxide 24 mmol/L (22-32); Calcium 9.4 mg/dL (8.6-10.3); Chloride 107 mmol/L (101-111); EGFR African American 109.1 (>60); EGFR Non-African American 90.2 (>60); Globulin 2.8 g/dL (2-4); Glucose 90 mg/dL (70-100); Potassium 3.6 mmol/L (3.5-5.0); Sodium 138 mmol/L (135-145); Total Protein 7.4 g/dL (6.4-8.9)
[2018-08-02 14:56] LABS: Urine Appearance Clear; Urine Bacteria Absent (Absent); Urine Bilirubin Negative (Negative); Urine Blood 1+ (Negative); Urine Color Straw; Urine Glucose Negative (Negative); Urine Ketones Negative (Negative); Urine Nitrite Negative (Negative); Urine Protein Negative (Negative); Urine Red Blood Cell Trace(0-2/hpf) (Absent); Urine Specific Gravity 1.004 (1.010-1.030); Urine Urobilinogen Negative (Negative); Urine White Blood Cell Trace(0-5/hpf) (Absent)
--- NOTE | 2018-08-02 17:00 | ED ---
Abdominal Pain/Female - HPI Summary HPI Summary: A 22 y/o female presents to [facility] with a chief complaint of RLQ abdominal pain since this morning. She was at Urgent Care and was sent to [facility] to rule out appendicitis vs ovarian cyst. She reports that her pain has gone down from 8/10 to 6/10. no analgesia taken. She reports nausea without vomiting. Her LNMP was 2.5 weeks ago. Pt reprots a history of ovarian cysts - but this seemed more intense. Pt states worse with movement. No fever, chills. No vaginal discharge, itching, odor. Mild urinary discomfort yesterday, none today. No back pain, no trauma. Pt denies diarrhea with a normal BM today. She did not take anything for her medication. She has had surgeries. She reports EtOH use three days ago. She claims that she drinks occasionally on the weekends. She denies smoking or drug use. Medications reviewed this visit - History of Current Complaint Chief Complaint: EDAbdPain Stated Complaint: ABD PAIN SENT BY UC PER PT Time Seen by Provider: 08/02/18 16:41 Hx Obtained From: Patient Hx Last Menstrual Period: 07/18/18 Onset/Duration: Sudden Onset, Lasting Minutes, Still Present Timing: Constant Severity Initially: Severe Severity Currently: Moderate Pain Intensity: 6 Pain Scale Used: 0-10 Numeric Location: Discrete At: RLQ Radiates: No Character: Other: - unable to describe Aggravating Factor(s): Nothing Alleviating Factor(s): Nothing Associated Signs and Symptoms: Positive: Fever - 100.0 at triage, Nausea. Negative: Vomiting Allergies/Adverse Reactions: Allergies Allergy/AdvReac Type Severity Reaction Status Date / Time cefuroxime Allergy Nausea And Verified 08/02/18 13:27 Vomiting clavulanic acid Allergy Nausea And Verified 08/02/18 13:27 Vomiting codeine Allergy Nausea And Verified 08/02/18 13:27 Vomiting doxycycline Allergy Nausea And Verified 08/02/18 13:27 Vomiting PMH/Surg Hx/FS Hx/Imm Hx Previously Healthy: Yes Endocrine/Hematology History: Denies: Hx Anticoagulant Therapy, Hx Diabetes, Hx Thyroid Disease Cardiovascular History: Denies: Hx Congestive Heart Failure, Hx Deep Vein Thrombosis, Hx Hypertension , Hx Myocardial Infarction, Hx Pacemaker/ICD Respiratory History: Reports: Hx Asthma Denies: Hx Chronic Obstructive Pulmonary Disease (COPD), Hx Lung Cancer, Hx Pneumonia, Hx Pulmonary Embolism GI History: Denies: Hx Gall Bladder Disease, Hx Gastrointestinal Bleed, Hx Ulcer, Hx Urosepsis History: Denies: Hx Kidney Stones, Hx Renal Disease Neurological History: Denies: Hx Dementia, Hx Migraine, Hx Seizures, Hx Transient Ischemic Attacks (TIA) Psychiatric History: Reports: Hx Anxiety, Hx Depression Denies: Hx Eating Disorder - "my counselor talked about anorexia but never diagnosed.", Hx Schizophrenia, Hx Bipolar Disorder - Surgical History Surgery Procedure, Year, and Place: T&A. L foot surgery. tubes in ears Infectious Disease History: No Infectious Disease History: Denies: Hx Clostridium Difficile, Hx Hepatitis, Hx Human Immunodeficiency Virus (HIV), Hx of Known/Suspected MRSA, Hx Shingles, Hx Tuberculosis, Hx Known/ Suspected VRE, Hx Known/Suspected VRSA, History Other Infectious Disease, Traveled Outside the in Last 30 Days - Family History Known Family History: Positive: Cardiac Disease, Hypertension, Diabetes, Other - Mother has IBS Negative: Renal Disease Family History: Mother has IBS - Social History Occupation: Employed Full-time - [employer] Lives: With Family Alcohol Use: Occasionally Alcohol Amount: 3-4 weekends Substance Use Type: Reports: None Smoking Status (MU): Never Smoked Tobacco Review of Systems Positive: Fever - 100.0 at triage Positive: Abdominal Pain, Nausea. Negative: Vomiting All Other Systems Reviewed And Are Negative: Yes Physical Exam - Summary Physical Exam Summary: Vital Signs Reviewed: Yes A+Ox3, no distress Eyes: Conjunctiva Clear, DI. EOM intact and full ENT: Hearing grossly normal TM x 2 clear, mmoist, uvula midline, no exudate, no erythema Neck: Positive: Supple Respiratory: Positive: No respiratory distress, No accessory muscle use + CTA throughout no w/r Cardiovascular: RRR nl s1, s2 no m/r CBT <2 sec abd soft + BS + TTP lower quads R>L no guarding, no CVA Musculoskeletal Exam: CALIX x 4 without difficulty Strength Intact, ROM Intact Neurological: Positive: Alert, + sensation throughout Psychological: Positive: Normal Response To Family Skin: Positive: no rash, no ecchymosis Triage Information Reviewed: Yes Vital Signs On Initial Exam: Initial Vitals Temp Pulse Resp BP Pulse Ox 100.0 F 77 18 132/90 100 08/02/18 13:24 08/02/18 13:24 08/02/18 13:24 08/02/18 13:24 08/02/18 13:24 Diagnostics - Vital Signs Vital Signs Temp Pulse Resp BP Pulse Ox 08/02/18 16:00 99.7 F 73 19 124/77 100 08/02/18 13:24 100.0 F 77 18 132/90 100 - Laboratory Lab Results: Lab Results 08/02/18 08/02/18 08/02/18 Range/Units 14:03 14:03 14:44 WBC 6.9 (3.5-10.8) 10^3/uL RBC 4.85 (3.70-4.87) 10^6 /uL Hgb 13.7 (12.0-16.0) g/dL Hct 41 (35-47) % MCV 84 (80-97) fL MCH 28 (27-31) pg MCHC 34 (31-36) g/dL RDW 14 (10.5-15) % Plt Count 307 (150-450) 10^3/uL MPV 7.6 (7.4-10.4) fL Neut % (Auto) 58.6 % Lymph % (Auto) 32.7 % [place] % (Auto) 6.2 % Eos % (Auto) 2.0 % Baso % (Auto) 0.5 % Absolute Neuts (auto) 4.0 (1.5-7.7) 10^3/ul Absolute Lymphs (auto) 2.2 (1.0-4.8) 10^3/ul Absolute Monos (auto) 0.4 (0-0.8) 10^3/ul Absolute Eos (auto) 0.1 (0-0.6) 10^3/ul Absolute Basos (auto) 0.0 (0-0.2) 10^3/ul Absolute Nucleated RBC 0.0 10^3/ul Nucleated RBC % 0.0 Sodium 138 (135-145) mmol/L Potassium 3.6 (3.5-5.0) mmol/L Chloride 107 (101-111) mmol/L Carbon Dioxide 24 (22-32) mmol/L Anion Gap 7 (2-11) mmol/L BUN 9 (6-24) mg/dL Creatinine 0.79 (0.51-0.95) mg/dL Est GFR ( Amer) 109.1 (>60) Est GFR (Non-Af Amer) 90.2 (>60) BUN/Creatinine Ratio 11.4 (8-20) Glucose 90 (70-100) mg/dL Calcium 9.4 (8.6-10.3) mg/dL Total Bilirubin 0.50 (0.2-1.0) mg/dL AST 16 (13-39) U/L ALT 9 (7-52) U/L Alkaline Phosphatase 65 (34-104) U/L C-Reactive Protein 2.08 (<8.01) mg/L Total Protein 7.4 (6.4-8.9) g/dL Albumin 4.6 (3.2-5.2) g/dL Globulin 2.8 (2-4) g/dL Albumin/Globulin Ratio 1.6 (1-3) Lipase 21 (11.0-82.0) U/L Beta HCG, Quant < 0.60 mIU/mL Urine Color Straw Urine Appearance Clear Urine pH 5.0 (5-9) Ur Specific [place] 1.004 L (1.010-1.030) Urine Protein Negative (Negative) Urine Ketones Negative (Negative) Urine Blood 1+ A (Negative) Urine Nitrate Negative (Negative) Urine Bilirubin Negative (Negative) Urine Urobilinogen Negative (Negative) Ur Leukocyte Esterase Negative (Negative) Urine WBC (Auto) Trace(0-5/hpf) (Absent) Urine RBC (Auto) Trace(0-2/hpf) (Absent) Urine Bacteria Absent (Absent) Urine Glucose Negative (Negative) Result Diagrams: 08/02/18 14:03 08/02/18 14:03 Lab Statement: Any lab studies that have been ordered have been reviewed, and results considered in the medical decision making process. - Ultrasound No standard instances Ultrasound Interpretation Completed By: Radiologist - Patient Name: ZACK LISA Medical Record#: [id number] Ordering Physician: Jasmin Mccormick MD Acct.#: [id number] : 1995 Age: 22 Sex: F Location: EMERGENCY DEPARTMENT Exam Date: 08/02/18 2805 ADM Status: REG ER Order Information: US TRANSVAGINAL Accession Number: [id number] CPT: 27198 EXAM: US Pelvis, Transvaginal EXAM DATE/TIME: 6:30 PM CLINICAL HISTORY: 22 years old, female; Pelvic pain; Additional info: ? Ovarian cyst - lower abd/pelvic pain TECHNIQUE: Imaging protocol: Real-time transvaginal pelvic ultrasound with image documentation. Transvaginal imaging was used for better evaluation of the endometrium and adnexa. COMPARISON: TRANS US TRANSVAGINAL 05/19/2017 10:49 AM FINDINGS: Uterus/cervix: The uterus measures 7.1 x 2.7 x 4.3 cm. Homogeneous echogenicity. No myometrial mass. Endometrial stripe measures 12 mm. Right adnexa: Right ovary measures 4.2 x 2.1 x 2.1 cm and contains multiple small follicles. Normal blood flow. No mass. Left adnexa: Left ovary measures 3.4 x 1.5 x 3.2 cm and contains multiple small follicles. Normal blood flow. No mass. Bladder: Empty bladder. Bladder cannot be evaluated with this probe. Free fluid: None. IMPRESSION: Normal pelvic ultrasound. No ovarian cyst. To contact [facility] with a general question: [facility] - [phone] For direct physician to physician contact: Physician Hotline - [phone] [facility] ([facility] Facility ID #[id number]) <Electronically signed by Emperatriz Seals MD in OV > 08/02/181848 Dictated By: Emperatriz Seals MD Dictated Date/Time: 08/02/181848 Transcribed Date/Time: Copy to: This report is only to be considered final once signed by the Provider(s) as displayed in the "< Electronically Signed by >" field (s). Absence of a signature indicates the report is in a draft status and still needs to be finalized. In the event this document was created by someone other than the signing Provider, the individual initiating the document will be listed in the "Entered by:" or "Dictated by:" daniel. 1 of 2 Patient Name: ZACK LISA Medical Record#: [id number] Ordering Physician: Jasmin Mccormick MD Acct.#: [id number] : 1995 Age: 22 Sex: F Location: EMERGENCY DEPARTMENT Exam Date: 08/02/18 1733 ADM Status: REG ER Order Information: US APPENDIX Accession Number: [id number] CPT: 52821 EXAM: US Abdomen Limited, Appendix EXAM DATE/TIME: 08/02/2018 6:26 PM CLINICAL HISTORY: 22 years old, female; Abdominal pain; Acute; Additional info: Rlq pain ? appendiciti TECHNIQUE: Imaging protocol: Real-time ultrasound of the abdomen with image documentation. Examination was focused on the appendix. COMPARISON: No relevant prior studies available. FINDINGS: Appendix: Appendix not visualized. Appendicitis is not excluded. Intraperitoneal space: No visible free fluid. Other findings: The crochet beader reports patient experienced pain during exam. IMPRESSION: 1. Appendix not visualized. Appendicitis is not excluded. 2. The crochet beader reports patient experienced pain during exam. To contact [facility] with a general question: [facility] - [phone] For direct physician to physician contact: Physician Hotline - [phone] [facility] ([facility] Facility ID #[id number]) <Electronically signed by Emperatriz Seals MD in OV> 08/02/181851 Dictated By: Emperatriz Seals MD Dictated Date/Time: 08/02/181851 Transcribed Date/Time: Copy to: CC:Jimena Granado; Jasmin Mccormick MD Imaging - [facility] Imaging - [facility] Imaging - [facility] This report is only to be considered final once signed by the Provider(s) as displayed in the "<Electronically Signed by >" field (s). Absence of a signature indicates the report is in a draft status and still needs to be finalized. In the event this document was created by someone other than the signing Provider, the individual initiating the document will be listed in the "Entered by:" or "Dictated by:" daniel. 1 of 2 Re-Evaluation - Re-Evaluation First Eval Re-Evaluation Time: 18:32 Change: Unchanged Comment: The patient will be given Zofran and pain medication as symptoms intensified after her ultrasound. Patient continue drinking contrast. Reviewed lab work was non-concerning. Second Eval Re-Evaluation Time: 18:57 Comment: reviewed ultrasound results with pt. CT pending. labs wnl Abdominal Pain Fem Course/Dx - Course Course Of Treatment: Patient presented to urgent care for evaluation of possible appendicitis versus ovarian cyst. Patient with a history of ovarian cyst. Patient states she woke up this morning with mild right lower quadrant pain intensified. Patient states she was nauseous but did not vomit. Patient states pain is improved but not resolved cannot take anything. No vaginal or urinary symptoms. Patient went to urgent care was sent here. On exam vital signs are stable. Patient does have lower abdominal pain right worse than left. No rebound or guarding. We'll check ultrasound as well as started drinking contrast for CT. The ultrasound was diagnostic. CT water. Patient in agreement with plan. We'll check labs. At this time patient declined analgesia and antiemetic. - Diagnoses Provider Diagnoses: Abdominal pain Discharge - Sign-Out/Discharge Documenting (check all that apply): Sign-Out Patient Signing out patient TO: Chris Mason - pending ultrasounds and CT abdomen/ pelvis Patient Received Moderate/Deep Sedation with Procedure: No - Discharge Plan Condition: Stable Referrals: Jimena Bassett PA [Primary Care Provider] - - Billing Disposition and Condition Condition: STABLE - Attestation Statements Document Initiated by Malgorzata: Yes Documenting Scribe: Donal Machado Provider For Whom Malgorzata is Documenting (Include Credential): Jasmin Mccormick MD Scribe Attestation: I, Donal Machado, scribed for Jasmin Mccormick MD on 08/02/18 at 1850. Scribe Documentation Reviewed: Yes Provider Attestation: The documentation as recorded by the Donal shetty accurately reflects the service I personally performed and the decisions made by me, Jasmin Mccormick MD Status of Scribe Document: Viewed
[2018-08-02] MEDS ORDERED: NS 0.9% 1000 ML** 1,000 ML IV ONE (18:26)
[2018-08-02] MEDS ORDERED: Ondansetron INJ* 2 MG/ML VIAL IV ONE (18:27)
[2018-08-02] MEDS ORDERED: Morphine 4 MG/ML VIAL (1 ml) 4 MG/ML VIAL IV ONE (18:28)
[2018-08-02] MEDS ORDERED: Iohexol 300* (CONTRAST) 10 ML SDV IV ONE (18:43)
--- NOTE | 2018-08-02 20:55 | ED ---
Progress - Progress Note Progress Note: Patient is received as a sign out from Dr. Mccormick to Dr. Mason at [address] ABD/PEL results. CT ABD/PEL IMPRESSION: 1. Appendix not visualized. However, no pericecal inflammatory change identified to suggest appendicitis. Followup CT may be helpful if there is continued clinical concern. 2. Small amount of free fluid in the pelvis. THIS REPORT WAS REVIEWED BY DR. MASON 2051 - Upon re-evaluation, the patient still had some RLQ tenderness with no peritoneal signs. Given results of CT ABD/PEL, patient will be discharged to home. Care instructions discussed, patient is agreeable with discharge to home. - EKG/XRAY/CT CT: see above Re-Evaluation - Re-Evaluation First Eval Re-Evaluation Time: 18:32 Change: Unchanged Comment: The patient will be given Zofran and pain medication as symptoms intensified after her ultrasound. Patient continue drinking contrast. Reviewed lab work was non-concerning. Second Eval Re-Evaluation Time: 18:57 Comment: reviewed ultrasound results with pt. CT pending. labs wnl Third Eval Re-Evaluation Time: 20:52 Comment: 2051 - Upon re-evaluation, the patient still had some RLQ tenderness with no peritoneal signs. Given results of CT ABD/PEL, patient will be discharged to home. Care instructions discussed, patient is agreeable with discharge to home. Course/Dx - Course Course Of Treatment: Patient is received as a sign out from Dr. Mccormick to Dr. Mason at 1900 08/02/[address] ABD/PEL results. CT ABD/PEL IMPRESSION: 1. Appendix not visualized. However, no pericecal inflammatory change. identified to suggest appendicitis. Followup CT may be helpful if there is. continued clinical concern. 2. Small amount of free fluid in the pelvis. THIS REPORT WAS REVIEWED BY DR. MASON. 2051 - Upon re-evaluation, the patient still had some RLQ tenderness with no peritoneal signs. Given results of CT ABD/PEL, patient will be discharged to home. Care instructions discussed, patient is agreeable with discharge to home. - Diagnoses Provider Diagnoses: RLQ abdominal pain Discharge - Sign-Out/Discharge Documenting (check all that apply): Patient Departure - discharge Patient Received Moderate/Deep Sedation with Procedure: No - Discharge Plan Condition: Stable Disposition: HOME Patient Education Materials: Abdominal Pain (ED) Referrals: Jimena Bassett PA [Primary Care Provider] - Additional Instructions: The evaluation in the emergency department did not show a clear cause of your abdominal pain. Your laboratory tests, ultrasound and computed tomography did not identify a cause. The doctor treating you today thinks it is okay for your to go home. It is recommended you do the following: - stay well hydrated. Drink plenty of non-alcoholic, non-caffinated beverages - eat just bland foods (dry toast, scrambled eggs, soup broth) Do not eat spicy foods, acidic food, tomato based food until you are feeling better - Okay to take Tylenol every 6 hours for pain or fever - if your pain becomes uncontrolled, you develop uncontrolled vomiting, fever or any other concerns it is recommended you contact your doctor or return to the emergency department - Billing Disposition and Condition Condition: STABLE Disposition: Home - Attestation Statements Document Initiated by Malgorzata: Yes Documenting Scribe: ANTHONY FARAH Provider For Whom Malgorzata is Documenting (Include Credential): SERGIO MASON MD Scribe Attestation: ANTHONY Jon, scribed for SERGIO MASON MD on 08/03/18 at 0325. Scribe Documentation Reviewed: Yes Provider Attestation: The documentation as recorded by the ANTHONY shetty accurately reflects the service I personally performed and the decisions made by ESRGIO recinos MD Status of Scribe Document: Viewed
[2018-08-02 21:35] VITALS: BP 125/78
== END 2018-08-02 21:34 | disposition home or self-care (01) ==
LOC: ED 13:23
DX: R10.31 Right lower quadrant pain (principal); Z88.1 Allergy status to other antibiotic agents; Z88.5 Allergy status to narcotic agent; Z88.8 Allergy status to other drugs, medicaments and biological substances
CPT/HCPCS: 36415; 74177; 76705; 76830; 80053; 81003; 81015; 83690; 84702; 85025; 86140; 96361; 96374; 96375; 99282; J2270; J2405; Q9967